=== PATIENT | female | born 1985 | race Caucasian/White ===

== ENCOUNTER → 2017-05-11 | Outpatient (CLI) | payer OTHER ==
[~2017-05-11] MED LIST: ACET-1256 PO; AZEL30SP NAE; ETONMIS VAGRING; FLUT0.15 NAE; HYDR-3124 PO; HYDR-3983 PO; PRLSR20 PO; PROP40TA5 PO; SUMA50TA15 PO; TRAZ50TA35 PO
== END | disposition home or self-care (01) ==
LOC: C.PAPS 13:47
PROVIDERS: ATTEND Obstetrics & Gynecology
DX: Z12.4 Encounter for screening for malignant neoplasm of cervix (principal)

== ENCOUNTER 2017-05-19 15:45 | Emergency (ER) | payer OTHER ==
[~2017-05-19] VITALS: Ht 170.2 cm; Wt 74.1 kg
[~2017-05-19 15:45] MED LIST changes: -ETONMIS VAGRING; -HYDR-3124 PO; -PRLSR20 PO; -PROP40TA5 PO; -SUMA50TA15 PO; -TRAZ50TA35 PO
[2017-05-19 15:54] VITALS: TEMP 36.8; Ht 170.2 cm; Wt 74.1 kg
--- NOTE | 2017-05-19 17:04 | DIAGNOSTIC IMAGING REPORT ---
CHEST ONE VIEW PORTABLE CLINICAL HISTORY: Evaluate Fever/Sepsis sepsis COMPARISON STUDY: 10/02/2016 FINDINGS: The bones soft tissues and hemidiaphragms are normal. The cardiomediastinal silhouette is normal. The lungs are clear. The pulmonary vasculature is normal. IMPRESSION: Negative chest. The above report was generated using voice recognition software. It may contain grammatical, syntax or spelling errors. Electronically signed by: Amadeo Schilling M.D. 05/19/2017 5:02 PM Dictated Date/Time: 05/19/2017 5:02 PM
[2017-05-19 17:05] LABS: BASO % 0.4 %; BASO ABS # 0.03 K/uL (0-0.2); COMPLETE YES; EOS % 2.3 %; HEMATOCRIT 38.1 % (37-47); IG% 0.3 %; LYMPH % 38.4 %; LYMPH ABS # 2.95 K/uL (1.2-3.4); MEAN CELL VOLUME 88.8 fL (80-100); MEAN CORPUSCULAR HEMOGLOBIN 31.2 pg (25-34); MEAN CORPUSCULAR HGB CONC 35.2 g/dl (32-36); MEAN PLATELET VOLUME 10.9 fL (7.4-10.4); NEUT % 49.6 %; PLATELET COUNT 222 K/uL (130-400); RED BLOOD COUNT 4.29 M/uL (4.2-5.4); WHITE BLOOD COUNT 7.69 K/uL (4.8-10.8)
[2017-05-19 17:18] LABS: POINT OF CARE TROPONIN I < 0.030 ng/ml (0-0.045)
[2017-05-19 17:21] LABS: PARTIAL THROMBOPLASTIN RATIO 1.1; PROTHROMBIN TIME (PATIENT) 10.2 SECONDS (9.0-12.0)
[2017-05-19] MEDS ORDERED: SUMA50TA15 PO (17:26)
[2017-05-19] MEDS ORDERED: ETONMIS VAGRING (17:26)
[2017-05-19] MEDS ORDERED: TRAZ50TA35 PO (17:26)
[2017-05-19] MEDS ORDERED: HYDR-3124 PO (17:26)
[2017-05-19] MEDS ORDERED: PROP40TA5 PO (17:26)
[2017-05-19] MEDS ORDERED: PRLSR20 PO (17:26)
[2017-05-19 17:34] LABS: ALT/SGPT 73 U/L (12-78); AST/SGOT 13 U/L (15-37); BLOOD UREA NITROGEN 12 mg/dl (7-18); BUN/CREATININE RATIO 12.9 (10-20); CARBON DIOXIDE 27 mmol/L (21-32); CHLORIDE 107 mmol/L (98-107); CREATININE 0.95 mg/dl (0.60-1.20); GLUCOSE 82 mg/dl (70-99); POTASSIUM 3.6 mmol/L (3.5-5.1); SODIUM 138 mmol/L (136-145)
[2017-05-19 17:39] LABS: ALKALINE PHOSPHATASE 74 U/L (45-117)
--- NOTE | 2017-05-19 18:37 | EMERGENCY ROOM VISIT NOTE ---
History Report prepared by Mark: Madhavi Scott Under the Supervision of: Dr. Weston Rico D.O. First contact with patient: 16:40 Chief Complaint: CARDIAC ASSESSMENT Stated Complaint: CHEST PAIN,LEG PAIN,HEADACHE,NAUSEA,CHILLS,SWEATS Nursing Triage Summary: Pt referred by Dr Ricketts. Started on Nuvaring last Wednesday. Began having bilateral leg pain and migraines, nausea. Takes Imitrex no relief. Pt now reports chest heaviness more on the right side, headaches and pain in legs. Hx of Gallbladder removal and Hep A History of Present Illness The patient is a 32 year old female who presents to the Emergency Room with complaints of persistent central chest pain that began today. She currently rates her discomfort as a 6/10 in severity and describes her pain as a dull pain. The patient states that last week she was placed on the NuvaRing last week for her heavy menstrual cycles. She states that she has a history of a tubal ligation. The patient states that one week ago she began developing bilateral leg pain. She states that the pain has persisted. The patient reports a history of migraines, noting that she is prescribed two different medications for her migraines. She states that her migraines became more frequent at the end of last week. The patient states that last night she took her Imitrex three times without relief of her migraine-headache. She states that she never had a migraine this bad. The patient states that when she woke this morning she noticed a dull chest pain that has persisted throughout the day. She states that her chest pain feels heavier with lying flat. The patient states that her migraine-headache has persisted throughout the day and has taken Imitrex twice today. She additionally reports nausea, stating that she has taken Zofran for her symptoms. The patient states that Dr. Josue, OB/ Trade Show Coordinator referred her to the emergency department for further work up. Source of History: patient Onset: today Position: chest (central) Symptom Intensity: 6/10 Quality: dull, other (heaviness) Timing: other (persistent) Modifying Factors (Worsening): other (heavier with lying flat) Associated Symptoms: + headache, + nausea Note: Associated Symptoms: bilateral leg pain Review of Systems See HPI for pertinent positives & negatives. A total of 10 systems reviewed and were otherwise negative. Past Medical & Surgical Medical Problems: (1) Acute gastroenteritis (2) Ankle contusion (3) Post term over 40 weeks Family History Diabetes mellitus Hypertension Social History Smoking Status: Current Every Day Smoker Alcohol Use: none Drug Use: none Marital Status: single, in relationship Occupation Status: unemployed Current/Historical Medications Scheduled Etonogestrel/Ethinyl Estradiol (Nuvaring), 1 EA VAGRING MONTHLY Omeprazole (Prilosec), 20 MG PO DAILY Propranolol Hcl (Propranolol Hcl), 40 MG PO BID Trazodone Hcl (Trazodone), 50 MG PO HS Scheduled PRN Hydroxyzine Hcl (Atarax), 25-50 MG PO Q6H PRN for Anxiety Sumatriptan Succinate (Imitrex), 50 MG PO UD PRN for Migraine Allergies Coded Allergies: No Known Allergies (Verified , 10/02/16) Physical Exam Vital Signs Date Time Temp Pulse Resp B/P (MAP) Pulse Ox O2 Delivery O2 Flow Rate FiO2 05/19/17 18:40 63 16 116/73 100 Room Air 05/19/17 18:00 62 18 117/74 100 Room Air 05/19/17 17:21 52 05/19/17 15:58 100 Room Air 05/19/17 15:54 36.8 65 18 133/85 99 Room Air Physical Exam CONSTITUTIONAL/VITAL SIGNS: Reviewed / noted above. GENERAL: Non-toxic in appearance. INTEGUMENTARY: Warm, dry, and [place]. HEAD: Normocephalic. EYES: without scleral icterus or trauma. ENT/OROPHARYNX: clear and moist. LYMPHADENOPATHY/NECK: Is supple without lymphadenopathy or meningismus. RESPIRATORY: Lungs clear and equal. CARDIOVASCULAR: Regular rate and rhythm. GI/ABDOMEN: Soft and nontender. No organomegaly or pulsatile mass. No rebound or guarding. Normal bowel sounds. EXTREMITIES: Warm and well perfused. BACK: No CVA tenderness. NEUROLOGICAL: Intact without focal deficits. PSYCHIATRIC: normal affect. MUSCULOSKELETAL: Normally developed with good muscle tone. Medical Decision & Procedures ER Provider Diagnostic Interpretation: X ray results and stated below per my interpretation and radiology interpretation. CHEST ONE VIEW PORTABLE CLINICAL HISTORY: Evaluate Fever/Sepsis sepsis COMPARISON STUDY: 10/02/2016 FINDINGS: The bones soft tissues and hemidiaphragms are normal. The cardiomediastinal silhouette is normal. The lungs are clear. The pulmonary vasculature is normal. IMPRESSION: Negative chest. The above report was generated using voice recognition software. It may contain grammatical, syntax or spelling errors. Electronically signed by: Amadeo Schilling M.D. 05/19/2017 5:02 PM Dictated Date/Time: 05/19/2017 5:02 PM Laboratory Results 05/19/17 16:52 Red Blood Count 4.29, Mean Corpuscular Volume 88.8, Mean Corpuscular Hemoglobin 31.2, Mean Corpuscular Hemoglobin Concent 35.2, Mean Platelet Volume 10.9, Neutrophils (%) (Auto) 49.6, Lymphocytes (%) (Auto) 38.4, Monocytes (%) (Auto) 9.0, Eosinophils (%) (Auto) 2.3, Basophils (%) (Auto) 0.4, Neutrophils # (Auto) 3.82, Lymphocytes # (Auto) 2.95, Monocytes # (Auto) 0.69, Eosinophils # (Auto) 0.18, Basophils # (Auto) 0.03 05/19/17 16:52 Test 05/19/17 16:52 05/19/17 16:59 White Blood Count 7.69 K/uL (4.8-10.8) Red Blood Count 4.29 M/uL (4.2-5.4) Hemoglobin 13.4 g/dL (12.0-16.0) Hematocrit 38.1 % (37-47) Mean Corpuscular Volume 88.8 fL (80-100) Mean Corpuscular Hemoglobin 31.2 pg (25-34) Mean Corpuscular Hemoglobin Concent 35.2 g/dl (32-36) Platelet Count 222 K/uL (130-400) Mean Platelet Volume 10.9 fL (7.4-10.4) Neutrophils (%) (Auto) 49.6 % Lymphocytes (%) (Auto) 38.4 % Monocytes (%) (Auto) 9.0 % Eosinophils (%) (Auto) 2.3 % Basophils (%) (Auto) 0.4 % Neutrophils # (Auto) 3.82 K/uL (1.4-6.5) Lymphocytes # (Auto) 2.95 K/uL (1.2-3.4) Monocytes # (Auto) 0.69 K/uL (0.11-0.59) Eosinophils # (Auto) 0.18 K/uL (0-0.5) Basophils # (Auto) 0.03 K/uL (0-0.2) RDW Standard Deviation 41.6 fL (36.4-46.3) RDW Coefficient of Variation 13.0 % (11.5-14.5) Immature Granulocyte % (Auto) 0.3 % Immature Granulocyte # (Auto) 0.02 K/uL (0.00-0.02) Prothrombin Time 10.2 SECONDS (9.0-12.0) Prothromb Time International Ratio 1.0 (0.9-1.1) Activated Partial Thromboplast Time 27.8 SECONDS (21.0-31.0) Partial Thromboplastin Ratio 1.1 Anion Gap 4.0 mmol/L (3-11) Est Creatinine Clear Calc Drug Dose 91.1 ml/min Estimated GFR () 93.2 Estimated GFR (Non- 80.4 BUN/Creatinine Ratio 12.9 (10-20) Calcium Level 9.0 mg/dl (8.5-10.1) Total Bilirubin 0.3 mg/dl (0.2-1) Direct Bilirubin 0.1 mg/dl (0-0.2) Aspartate Amino Transf (AST/SGOT) 13 U/L (15-37) Alanine Aminotransferase (ALT/SGPT) 73 U/L (12-78) Alkaline Phosphatase 74 U/L (45-117) Total Creatine Kinase 78 U/L (26-192) Creatine Kinase MB < 0.5 ng/ml (0.5-3.6) Creatine Kinase MB Ratio (0-3.0) Total Protein 8.0 gm/dl (6.4-8.2) Albumin 4.0 gm/dl (3.4-5.0) Bedside D-Dimer 357 ng/mlFEU (0-450) Bedside Troponin I < 0.030 ng/ml (0-0.045) Laboratory results as stated above per my review. ECG Indication: chest pain Rate (beats per minute): 54 Rhythm: sinus bradycardia Findings: no acute ischemic change, no ectopy ED Course 164: Previous medical records were reviewed. The patient was evaluated in room C5. A complete history and physical examination was performed. 1840: I reevaluated the patient and she is doing well. I discussed the exam findings with her and I discussed the treatment plan. She verbalized complete understanding and agreement. She is ready to go home. Medical Decision Differentials considered include acute myocardial infarction, acute coronary syndrome, myocarditis, pericarditis, pericardial effusions /tamponade, esophageal perforation, thoracic aortic dissection, pulmonary embolism, pneumonia, pneumothorax, pancreatitis, shingles, acute cholecystitis, and perforated abdominal viscus. This is a 32-year-old female who presents to the ED with a chief complaint of leg pain last week as well as increasing migraines and some chest pain today. She describes it as a retrosternal sharp pain that is now dull. It is been all day. She also had some nausea. She states that she had a NuvaRing placed last Wednesday. She thought the symptoms were related to this. She was to come in for evaluation for her symptoms. Her vital signs are normal. Her physical exam was normal. An EKG shows a normal sinus rhythm. CBC is normal, d-dimer and troponin are negative, complete metabolic panel was normal and a chest x- ray did not show acute disease. EKG shows a sinus bradycardia rate of 54. The patient was told the results of the test. She is felt to be stable for discharge and outpatient follow-up. The patient did report that she did remove the Nuvaring. Medication Reconcilliation Current Medication List: was personally reviewed by me Blood Pressure Screening Patient's blood pressure: Normal blood pressure Blood pressure disposition: Did not require urgent referral Impression Primary Impression: Retrosternal chest pain Additional Impressions: Headache Leg pain Scribe Attestation The scribe's documentation has been prepared under my direction and personally reviewed by me in its entirety. I confirm that the note above accurately reflects all work, treatment, procedures, and medical decision making performed by me. Departure Information Dispostion Home / Self-Care Referrals Branden Borrero III, M.D. (PCP) Forms IMPORTANT VISIT INFORMATION Patient Instructions My [facility] Additional Instructions Testing today did not reveal a serious cause for your symptoms. The symptoms could be related to the new NuvaRing or something else. Follow-up with your doctor for recheck. Return to the emergency department for worsening or new symptoms or any concerns. You have been examined and treated today on an emergency basis only. This is not a substitute for, or an effort to provide, complete comprehensive medical care. It is impossible to recognize and treat all injuries or illnesses in a single emergency department visit. It is therefore important that you follow up closely with your doctor. Call as soon as possible for an appointment. Problem Qualifiers
[2017-05-19 18:40] VITALS: BP 116/73; PULSE 63; O2SAT 100
== END 2017-05-19 19:03 | disposition home or self-care (01) ==
LOC: C.EDB 15:47 → C.EDC 19:03
DX: R07.2 Precordial pain (principal); R51 Headache; M79.604 Pain in right leg; M79.605 Pain in left leg; F17.200 Nicotine dependence, unspecified, uncomplicated; Z87.828 Personal history of other (healed) physical injury and trauma; Z87.19 Personal history of other diseases of the digestive system; Z79.899 Other long term (current) drug therapy

== ENCOUNTER 2017-09-29 23:31 | Emergency (ER) | payer OTHER ==
[~2017-09-29] VITALS: Ht 170.2 cm; Wt 74.7 kg
[~2017-09-29 23:31] MED LIST changes: -ACET-1256 PO; -AZEL30SP NAE; -FLUT0.15 NAE; +HYDR-3124 PO; -HYDR-3983 PO; +PRLSR20 PO; +PROP40TA5 PO; +SUMA50TA15 PO; +TRAZ50TA35 PO
[2017-09-29 23:42] VITALS: TEMP 36.9; Ht 170.2 cm; Wt 74.7 kg
[2017-09-29] MEDS ORDERED: ONDANSETRON INJ 2 MG/ML 2 ML VIAL IV STA (23:58)
[2017-09-29] MEDS ORDERED: SODIUM CHLORIDE 0.9% 1000ML 1,000 ML IV STA (23:58)
[2017-09-29] MEDS ORDERED: KETOROLAC TROMETHAMINE 30 MG/ML VIAL IV STA (23:58)
[2017-09-30 00:51] LABS: BASO % 0.1 %; BASO ABS # 0.01 K/uL (0-0.2); EOS % 0.4 %; EOS ABS # 0.03 K/uL (0-0.5); HEMATOCRIT 39.7 % (37-47); HEMOGLOBIN 13.6 g/dL (12.0-16.0); IG# 0.01 K/uL (0.00-0.02); LYMPH % 11.1 %; MEAN CELL VOLUME 90.6 fL (80-100); MEAN CORPUSCULAR HEMOGLOBIN 31.1 pg (25-34); MEAN CORPUSCULAR HGB CONC 34.3 g/dl (32-36); MEAN PLATELET VOLUME 10.4 fL (7.4-10.4); MONO % 8.1 %; MONO ABS # 0.66 K/uL (0.11-0.59); NEUT % 80.2 %; NEUT ABS # 6.53 K/uL (1.4-6.5); PLATELET COUNT 190 K/uL (130-400); RED CELL DISTRIBUTION WIDTH SD 43.5 fL (36.4-46.3); WHITE BLOOD COUNT 8.14 K/uL (4.8-10.8)
[2017-09-30 01:22] LABS: ALBUMIN 3.8 gm/dl (3.4-5.0); CALCIUM 8.5 mg/dl (8.5-10.1); CREATININE 0.84 mg/dl (0.60-1.20); POTASSIUM 3.7 mmol/L (3.5-5.1)
[2017-09-30 01:24] LABS: TOTAL PROTEIN 7.8 gm/dl (6.4-8.2)
[2017-09-30] MEDS ORDERED: OPTIRAY 320 IV PRN (01:30)
[2017-09-30] MEDS ORDERED: ONDANSETRON INJ 2 MG/ML 2 ML VIAL IV STA (03:26)
--- NOTE | 2017-09-30 03:57 | EMERGENCY ROOM VISIT NOTE ---
History First contact with patient: 23:50 Chief Complaint: GI ASSESSMENT Stated Complaint: FLU LIKE SYMPTOMS Nursing Triage Summary: c/o vomiting, diarrhea and abd cramps since yesterday. History of Present Illness The patient is a 32 year old female who presents to the Emergency Room with complaints of vomiting, diarrhea and abdominal cramping which began yesterday. The patient states that she has had cramping throughout her abdomen as well as multiple episodes of vomiting and diarrhea. She reports chills but has not taken her temperature. She took Imodium without relief of her diarrhea. She rates her discomfort a 5/10. She has not had much to eat or drink over the past few days. She had a cholecystectomy last year. She denies any other history of abdominal surgeries. She denies any cough, sore throat, earaches or body aches. She denies any blood in her stools. Review of Systems A complete 10 point review of systems was reviewed with the patient with pertinent positives and negatives as per history of present illness. All else were negative. Past Medical/Surgical History Medical Problems: (1) Acute gastroenteritis (2) Ankle contusion (3) Post term over 40 weeks Family History Diabetes mellitus Hypertension Social History Smoking Status: Current Every Day Smoker Alcohol Use: none Drug Use: none Marital Status: single, in relationship Occupation Status: unemployed Current/Historical Medications Scheduled Omeprazole (Prilosec), 20 MG PO DAILY Ondasetron Odt (Zofran Odt), 4 MG SL Q6H Propranolol Hcl (Propranolol Hcl), 40 MG PO BID Scheduled PRN Hydroxyzine Hcl (Atarax), 25-50 MG PO Q6H PRN for Anxiety Sumatriptan Succinate (Imitrex), 50 MG PO UD PRN for Migraine Trazodone Hcl (Trazodone), 50 MG PO HS PRN for Physical Exam Vital Signs Date Time Temp Pulse Resp B/P (MAP) Pulse Ox O2 Delivery O2 Flow Rate FiO2 09/30/17 05:27 71 17 103/61 99 09/30/17 04:10 71 17 106/60 100 Room Air 09/30/17 02:10 73 17 102/61 99 Room Air 09/30/17 00:48 76 20 96/52 98 Room Air 09/29/17 23:42 36.9 93 18 98/67 96 Room Air Physical Exam VITALS: Vitals are noted on the nurse's note and reviewed by myself. Vital signs stable. GENERAL: This is a 32-year-old female, in no acute distress, nondiaphoretic, well-developed well-nourished. EARS: External auditory canals clear, tympanic membranes pearly santos without erythema or effusion bilaterally. EYES: Pupils equal round and reactive to light and accommodation. MOUTH: Mucous membranes slightly dry. NECK: Supple without nuchal rigidity. HEART: Regular rate and rhythm without murmurs gallops or rubs. LUNGS: Clear to auscultation bilaterally without wheezes, rales or rhonchi. ABDOMEN: Positive bowel sounds x 4. Soft, mild diffuse tenderness to palpation. No focal tenderness. No guarding or rebound tenderness. NEURO: Patient was alert and oriented to person place and time. Medical Decision & Procedures ER Provider Diagnostic Interpretation: ABDOMINAL SERIES: Mildly dilated small bowel. No air-fluid levels to suggest obstruction. CT ABDOMEN & PELVIS WITH CONTRAST: Gastric wall thickening or under distention. Fluid in small bowel loops, can be seen with enteritis and the appropriate clinical setting. No evidence of bowel obstruction. Normal appendix visualized. Probable right corpus luteum. Trace pelvic free fluid. Redemonstration of surgical clips from cholecystectomy. Redemonstration of right lower pole 1 cm renal cyst. Radiologist: Roshni Esquivel MD Laboratory Results 09/30/17 00:35 Red Blood Count 4.38, Mean Corpuscular Volume 90.6, Mean Corpuscular Hemoglobin 31.1, Mean Corpuscular Hemoglobin Concent 34.3, Mean Platelet Volume 10.4, Neutrophils (%) (Auto) 80.2, Lymphocytes (%) (Auto) 11.1, Monocytes (%) (Auto) 8.1, Eosinophils (%) (Auto) 0.4, Basophils (%) (Auto) 0.1, Neutrophils # (Auto) 6.53, Lymphocytes # (Auto) 0.90, Monocytes # (Auto) 0.66, Eosinophils # (Auto) 0.03, Basophils # (Auto) 0.01 09/30/17 00:35 Test 09/30/17 00:35 09/30/17 00:50 White Blood Count 8.14 K/uL (4.8-10.8) Red Blood Count 4.38 M/uL (4.2-5.4) Hemoglobin 13.6 g/dL (12.0-16.0) Hematocrit 39.7 % (37-47) Mean Corpuscular Volume 90.6 fL (80-100) Mean Corpuscular Hemoglobin 31.1 pg (25-34) Mean Corpuscular Hemoglobin Concent 34.3 g/dl (32-36) Platelet Count 190 K/uL (130-400) Mean Platelet Volume 10.4 fL (7.4-10.4) Neutrophils (%) (Auto) 80.2 % Lymphocytes (%) (Auto) 11.1 % Monocytes (%) (Auto) 8.1 % Eosinophils (%) (Auto) 0.4 % Basophils (%) (Auto) 0.1 % Neutrophils # (Auto) 6.53 K/uL (1.4-6.5) Lymphocytes # (Auto) 0.90 K/uL (1.2-3.4) Monocytes # (Auto) 0.66 K/uL (0.11-0.59) Eosinophils # (Auto) 0.03 K/uL (0-0.5) Basophils # (Auto) 0.01 K/uL (0-0.2) RDW Standard Deviation 43.5 fL (36.4-46.3) RDW Coefficient of Variation 13.0 % (11.5-14.5) Immature Granulocyte % (Auto) 0.1 % Immature Granulocyte # (Auto) 0.01 K/uL (0.00-0.02) Anion Gap 6.0 mmol/L (3-11) Est Creatinine Clear Calc Drug Dose 103.3 ml/min Estimated GFR () 108.1 Estimated GFR (Non- 93.3 BUN/Creatinine Ratio 14.9 (10-20) Calcium Level 8.5 mg/dl (8.5-10.1) Total Bilirubin 0.8 mg/dl (0.2-1) Aspartate Amino Transf (AST/SGOT) 191 U/L (15-37) Alanine Aminotransferase (ALT/SGPT) 144 U/L (12-78) Alkaline Phosphatase 93 U/L (45-117) Total Protein 7.8 gm/dl (6.4-8.2) Albumin 3.8 gm/dl (3.4-5.0) Globulin 4.0 gm/dl (2.5-4.0) Albumin/Globulin Ratio 1.0 (0.9-2) Lipase 154 U/L (73-393) Urine Color DK YELLOW Urine Appearance CLOUDY (CLEAR) Urine pH 5.0 (4.5-7.5) Urine Specific Kaycee 1.022 (1.000-1.030) Urine Protein NEG (NEG) Urine Glucose (UA) NEG (NEG) Urine Ketones TRACE (NEG) Urine Occult Blood NEG (NEG) Urine Nitrite NEG (NEG) Urine Bilirubin NEG (NEG) Urine Urobilinogen NEG (NEG) Urine Leukocyte Esterase NEG (NEG) Urine WBC (Auto) 1-5 /hpf (0-5) Urine RBC (Auto) 10-30 /hpf (0-4) Urine Hyaline Casts (Auto) 1-5 /lpf (0-5) Urine Epithelial Cells (Auto) >30 /lpf (0-5) Urine Bacteria (Auto) NEG (NEG) Urine Test NEG (NEG) Medications Administered Medications (Trade) Dose Ordered Sig/Timothy Route Start Time Stop Time Status Last Admin Dose Admin Sodium Chloride 1,000 ml @ 999 mls/hr Q1H1M STAT IV 09/29/17 23:58 09/30/17 00:58 DC 09/30/17 00:44 999 MLS/HR Ketorolac Tromethamine (Toradol Inj) 30 mg NOW STAT IV 09/29/17 23:58 09/30/17 00:00 DC 09/30/17 00:45 30 MG Ondansetron HCl (Zofran Inj) 4 mg NOW STAT IV 09/29/17 23:58 09/30/17 00:00 DC 09/30/17 00:44 4 MG Ondansetron HCl (Zofran Inj) 4 mg NOW STAT IV 09/30/17 03:26 09/30/17 03:27 DC 09/30/17 03:26 4 MG Ondansetron HCl (ZOFRAN ODT 4MG Home Pack) 1 homepack UD ONCE PO 09/30/17 05:15 09/30/17 05:16 DC 09/30/17 05:29 1 HOMEPACK Medical Decision Differential diagnosis includes gastroenteritis, appendicitis, colitis, C. difficile, among others. The patient is a 32-year-old female who presents today complaining of abdominal cramping, vomiting and diarrhea. Labs revealed no leukocytosis or anemia. No concerning electrolyte abnormalities. Lipase was not elevated. LFTs are elevated with AST of 191 and ALT 144. This appears to be new for the patient. Bilirubin is normal. CT of the abdomen and pelvis was performed and shows findings consistent with enteritis without any other acute findings. Patient was treated with IV Zofran and fluids with improvement of symptoms. She was able to tolerate oral fluids. She was given a home pack and prescription of Zofran and instructed to push fluids at home. She will follow-up with her primary care provider and should have her LFTs rechecked. She understands she should return for any worsening or new/concerning symptoms. Based on the patient's presentation and work up, I feel the patient is stable for outpatient treatment. The patient was educated to return to the emergency department for any worsening of their current condition or new/concerning symptoms. She will follow up with her PCP. Medication Reconcilliation Current Medication List: was personally reviewed by me Blood Pressure Screening Patient's blood pressure: Normal blood pressure Impression Primary Impression: Nausea, vomiting and diarrhea Departure Information Dispostion Home / Self-Care Condition GOOD Prescriptions Ondasetron Odt (ZOFRAN ODT) 4 Mg Tab 4 MG SL Q6H for Nausea, #10 TAB Prov: Sheela Bustillo ., CHARIS 09/30/17 Referrals Branden Borrero III, M.D. (PCP) Patient Instructions My [facility] Additional Instructions You have been prescribed Zofran to be used for any nausea or vomiting. Take as prescribed. Make sure to rest and drink plenty of fluids, especially Gatorade or other electrolyte-containing fluids like Pedialyte. Follow-up with your primary care provider in 2 days for a recheck. Return to the emergency department with any worsening vomiting, lightheadedness , dizziness, passing out or other new/concerning symptoms.
[2017-09-30] MEDS ORDERED: ONDA4TAB10 SL (05:11)
[2017-09-30] MEDS ORDERED: ONDANSETRON HOME PACK 4MG OD TAB PO ONE (05:15)
[2017-09-30 05:27] VITALS: BP 103/61; PULSE 71; O2SAT 99
--- NOTE | 2017-09-30 06:39 | DIAGNOSTIC IMAGING REPORT ---
ABDOMEN 2VIEW W/PA CHEST RTN CLINICAL HISTORY: abdominal cramping, vomiting pain. Nausea. COMPARISON STUDY: 2016 FINDINGS: The soft tissues, psoas shadows, renal outlines and intestinal gas pattern appear normal. There is no evidence for bowel obstruction. There is no evidence for free intraperitoneal air. No abnormal abdominal calcifications are seen. A frontal view of the chest was performed and is unremarkable. Minimal ileus with several air-filled loops of small bowel IMPRESSION: Normal chest. Minimal ileus. The above report was generated using voice recognition software. It may contain grammatical, syntax or spelling errors. Electronically signed by: Amadeo Schilling M.D. 09/30/2017 6:37 AM Dictated Date/Time: 09/30/2017 6:37 AM
--- NOTE | 2017-09-30 07:21 | DIAGNOSTIC IMAGING REPORT ---
ABDOMEN AND PELVIS CT WITH IV CONTRAST CT DOSE: 382.96 mGy.cm HISTORY: Generalized abdominal pain, vomiting TECHNIQUE: Multiaxial CT images of the abdomen and pelvis were performed following the use of intravenous contrast. A dose lowering technique was utilized adhering to the principles of ALARA. COMPARISON STUDY: Abdomen and pelvis CT 10/03/2016. FINDINGS: The lung bases are clear. Cholecystectomy. There is again noted a 1 cm right renal cyst. Normal left kidney. No hydronephrosis. The spleen, pancreas, and adrenal glands are unremarkable. Questionable gastric wall thickening is likely due to underdistention. Otherwise, no bowel wall thickening or obstruction. Normal appendix. No retroperitoneal lymphadenopathy. Small corpus luteum within the right ovary. Normal uterus and left ovary. Trace pelvic free fluid. The bladder is underdistended and not well visualized. IMPRESSION: 1. No bowel wall thickening or obstruction. 2. Normal appendix. 3. Cholecystectomy. 4. Right renal cyst. Electronically signed by: Isac Joe M.D. 09/30/2017 7:19 AM Dictated Date/Time: 09/30/2017 7:16 AM
[2017-11-05] MEDS ORDERED: OXYC-90 PO (23:43)
[2017-11-09] MEDS ORDERED: OXYC-90 PO (17:10)
[2018-03-30] MEDS ORDERED: CEPH500C PO (20:49)
[2018-04-01] MEDS ORDERED: CEPH500C2 PO (05:59)
[2018-04-01] MEDS ORDERED: ONDA4TAB10 SL (06:04)
[2018-04-01] MEDS ORDERED: VENL150C2 PO (06:06)
== END 2017-09-30 05:28 | disposition home or self-care (01) ==
LOC: C.EDB 23:32
DX: R11.2 Nausea with vomiting, unspecified (principal); R19.7 Diarrhea, unspecified; Z87.19 Personal history of other diseases of the digestive system; Z87.828 Personal history of other (healed) physical injury and trauma; F17.200 Nicotine dependence, unspecified, uncomplicated; Z79.899 Other long term (current) drug therapy; Z83.3 Family history of diabetes mellitus; Z82.49 Family history of ischemic heart disease and other diseases of the circulatory system

== ENCOUNTER 2017-11-05 20:31 | Emergency (ER) | payer OTHER ==
[~2017-11-05] VITALS: Ht 170.2 cm; Wt 76.7 kg
[~2017-11-05 20:31] MED LIST changes: +ONDA4TAB10 SL
[2017-11-05 20:37] VITALS: TEMP 36.4; Ht 170.2 cm; Wt 76.7 kg
[2017-11-05] MEDS ORDERED: MoRPHine SULFATE 10 MG/ML CARP/VIAL IV STA ×2 (21:00→23:02)
[2017-11-05] MEDS ORDERED: KETOROLAC TROMETHAMINE 30 MG/ML VIAL IV STA (21:00)
[2017-11-05] MEDS ORDERED: ONDANSETRON INJ 2 MG/ML 2 ML VIAL IV STA ×2 (21:00→23:02)
[2017-11-05] MEDS ORDERED: TAMS0.4C38 PO (21:45)
[2017-11-05] MEDS ORDERED: CIPR-255 PO (21:45)
[2017-11-05 21:51] LABS: BASO % 0.2 %; BASO ABS # 0.02 K/uL (0-0.2); EOS % 2.9 %; EOS ABS # 0.24 K/uL (0-0.5); HEMATOCRIT 37.6 % (37-47); HEMOGLOBIN 12.8 g/dL (12.0-16.0); IG# 0.02 K/uL (0.00-0.02); LYMPH % 45.4 %; LYMPH ABS # 3.71 K/uL (1.2-3.4); MEAN CORPUSCULAR HEMOGLOBIN 30.6 pg (25-34); MEAN PLATELET VOLUME 10.7 fL (7.4-10.4); MONO % 8.4 %; MONO ABS # 0.69 K/uL (0.11-0.59); NEUT % 42.9 %; NEUT ABS # 3.49 K/uL (1.4-6.5); PLATELET COUNT 213 K/uL (130-400); RED CELL DISTRIBUTION WIDTH CV 12.7 % (11.5-14.5); RED CELL DISTRIBUTION WIDTH SD 41.6 fL (36.4-46.3); WHITE BLOOD COUNT 8.17 K/uL (4.8-10.8)
[2017-11-05 22:14] LABS: CALCIUM 8.7 mg/dl (8.5-10.1); CREATININE 0.72 mg/dl (0.60-1.20); POTASSIUM 3.6 mmol/L (3.5-5.1)
[2017-11-05 22:17] LABS: TOTAL PROTEIN 7.7 gm/dl (6.4-8.2)
--- NOTE | 2017-11-05 22:57 | DIAGNOSTIC IMAGING REPORT ---
PELVIC COMPLETE NON OB CLINICAL HISTORY: 32 years-old Female presenting with RIGHT PELVIC PAIN, REPORTED OVARIAN CYST, history of tubal ligation, right greater than left pelvic pain. TECHNIQUE: Real-time grayscale and color and spectral Doppler ultrasound imaging of the pelvis was performed first using a transabdominal probe and subsequently transvaginal for better characterization. COMPARISON: CT from 09/30/2017. FINDINGS: Uterus: Normal. Retroverted. The uterus measures 7.1 x 4.7 x 6.4 cm. Endometrial stripe measures 16 mm in thickness, which could be normal for age and phase of menstrual cycle. Endometrium normal-appearing. Cervix normal. Right adnexa: Right ovary contains an avascular hypoechoic lesion with lacelike internal echoes. This lesion measures 3.5 x 2.5 x 3.8 cm and accounts for expansion of the right ovary. Right ovary measures 5.4 x 4.8 x 4.8 cm. Normal color Doppler flow and arterial and venous waveforms within the ovarian parenchyma. Left adnexa: Left ovary normal. Left ovary measures 3.6 x 1.6 x 2.0 cm. Normal color Doppler flow and arterial and venous waveforms within the ovarian parenchyma. Other: Trace free fluid, likely physiologic. IMPRESSION: 1. Right hemorrhagic cyst. No ovarian torsion. Electronically signed by: Yusuf Keen M.D. 11/05/2017 10:56 PM Dictated Date/Time: 11/05/2017 10:52 PM
[2017-11-05] MEDS ORDERED: OXYC1TAB3 PO (23:43)
[2017-11-05] MEDS ORDERED: OXYCODONE IR HOME PACK PO ONE (23:45)
--- NOTE | 2017-11-05 23:51 | EMERGENCY ROOM VISIT NOTE ---
History First contact with patient: 20:49 Chief Complaint: FLANK PAIN Stated Complaint: RIGHT BACK PAIN, PELVIC PAIN, OVARY CYST History of Present Illness Patient is a 32-year-old white female who presents the emergency department for evaluation of right flank pain 2 weeks. She states that she developed pain in her right low back about 2 weeks ago. She tried to ride it out and let it go for about a week. One week ago, she developed symptoms concerning for a urinary tract infection. On Wednesday, 10/31 she was seen at [facility] where she was placed on Cipro for a suspected UTI. She reports that she had blood in her urine at that time. She was contacted 2 days later however because the urine culture was negative. She did continue to take the Cipro. She was seen by her primary care provider yesterday. Again, she had blood in her urine and given the flank pain, she was started on Flomax and Oneill , and had a noncontrast CT scan performed. She sent a message to her provider today and was given the results of the CT scan via email. She reportedly had a right ovarian cyst that was about 4 cm, but did not have a kidney stone. The patient states that despite the Flomax, Cipro and Oneill, the pain is worsening. It is now low in the right abdomen, groin and radiates towards the top of her thigh. She continues to have dysuria, frequency, urgency and hesitancy. She is nauseous and dizzy on occasion with pain. She has not been vomiting. She had Zofran at home from a prior illness which she took. She presently rates her pain a an 8/10. She is status post tubal ligation and cholecystectomy. She was seen by her square cutter for irregular menstrual bleeding recently, otherwise denies any significant gynecologic history. Bowel movements have been normal. She denies fevers. Review of Systems Review of systems as per HPI. All other systems reviewed were negative. 10 systems reviewed. Past Medical/Surgical History Medical Problems: (1) Abdominal pain, right upper quadrant (2) Acute gastroenteritis (3) Acute gastroenteritis (4) Ankle contusion (5) Anxiety (6) Biliary colic (7) Dehydration (8) Gallstones (9) GERD (gastroesophageal reflux disease) (10) Headache (11) Leakage of amniotic fluid (12) Leg pain (13) Migraine (14) Nausea, vomiting and diarrhea (15) Plant allergic contact dermatitis (16) Post term over 40 weeks (17) Retrosternal chest pain (18) Right sided abdominal pain (19) Right-sided chest pain (20) RUQ abdominal pain Surgical Problems: (1) History of tubal ligation (2) Status post cholecystectomy Electronic medical records are reviewed and summarized as above/below. See Problem List. Family History Diabetes mellitus Hypertension Social History Smoking Status: Current Every Day Smoker Alcohol Use: none Drug Use: none Marital Status: Housing Status: lives with family Occupation Status: employed Current/Historical Medications Scheduled Ciprofloxacin Hcl (Cipro), 500 MG PO BID Omeprazole (Prilosec), 20 MG PO DAILY Ondasetron Odt (Zofran Odt), 4 MG SL Q6H Propranolol Hcl (Propranolol Hcl), 40 MG PO BID Tamsulosin Hcl (Flomax), 0.4 MG PO DAILY Scheduled PRN Hydroxyzine Hcl (Atarax), 25-50 MG PO Q6H PRN for Anxiety Oxycodone Ir (Roxicodone Ir), 1-2 TAB PO Q4H PRN for Severe Pain Sumatriptan Succinate (Imitrex), 50 MG PO UD PRN for Migraine Trazodone Hcl (Trazodone), 50 MG PO HS PRN for Physical Exam Vital Signs Date Time Temp Pulse Resp B/P (MAP) Pulse Ox O2 Delivery O2 Flow Rate FiO2 11/05/17 22:59 65 18 124/73 100 Room Air 11/05/17 21:38 71 16 112/67 99 Room Air 11/05/17 20:37 36.4 81 20 117/82 100 Room Air Physical Exam CONSTITUTIONAL: Patient is an uncomfortable appearing 32-year-old white female who is awake and alert and in moderate distress due to her stated complaint. EYES: Pupils equal, round, reactive to light and accommodation. EOMs intact without nystagmus. Sclera are anicteric. ENT: Tympanic membranes intact, with normal landmarks. External canals are clear. Oral and nasopharynx are clear. Mucous membranes are moist, no lesions , tongue and gums appear normal. CARDIOVASCULAR: Regular rate and rhythm, with normal S1 and S2, no murmur or gallop or rub is heard. No carotid bruits auscultated. No JVD. Peripheral pulses easily palpable. RESPIRATORY: Breath sounds equal and clear to auscultation without wheezes, rales, or rhonchi heard. Full and equal chest expansion without accessory muscle use or retractions. ABDOMEN: Bowel sounds are present. Well-healed surgical scars are noted. Abdomen is soft, nondistended, tender to percussion and palpation very low in the right lower quadrant, without guarding, rebound or rigidity. INTEGUMENTARY: No lesions or rash, normal skin turgor. LYMPH: No lymphadenopathy. Medical Decision & Procedures ER Provider Diagnostic Interpretation: PELVIC COMPLETE NON OB CLINICAL HISTORY: 32 years-old Female presenting with RIGHT PELVIC PAIN, REPORTED OVARIAN CYST, history of tubal ligation, right greater than left pelvic pain. TECHNIQUE: Real-time grayscale and color and spectral Doppler ultrasound imaging of the pelvis was performed first using a transabdominal probe and subsequently transvaginal for better characterization. COMPARISON: CT from 09/30/2017. FINDINGS: Uterus: Normal. Retroverted. The uterus measures 7.1 x 4.7 x 6.4 cm. Endometrial stripe measures 16 mm in thickness, which could be normal for age and phase of menstrual cycle. Endometrium normal-appearing. Cervix normal. Right adnexa: Right ovary contains an avascular hypoechoic lesion with lacelike internal echoes. This lesion measures 3.5 x 2.5 x 3.8 cm and accounts for expansion of the right ovary. Right ovary measures 5.4 x 4.8 x 4.8 cm. Normal color Doppler flow and arterial and venous waveforms within the ovarian parenchyma. Left adnexa: Left ovary normal. Left ovary measures 3.6 x 1.6 x 2.0 cm. Normal color Doppler flow and arterial and venous waveforms within the ovarian parenchyma. Other: Trace free fluid, likely physiologic. IMPRESSION: 1. Right hemorrhagic cyst. No ovarian torsion. Laboratory Results 11/05/17 21:19 Red Blood Count 4.18, Mean Corpuscular Volume 90.0, Mean Corpuscular Hemoglobin 30.6, Mean Corpuscular Hemoglobin Concent 34.0, Mean Platelet Volume 10.7, Neutrophils (%) (Auto) 42.9, Lymphocytes (%) (Auto) 45.4, Monocytes (%) (Auto) 8.4, Eosinophils (%) (Auto) 2.9, Basophils (%) (Auto) 0.2, Neutrophils # (Auto) 3.49, Lymphocytes # (Auto) 3.71, Monocytes # (Auto) 0.69, Eosinophils # (Auto) 0.24, Basophils # (Auto) 0.02 11/05/17 21:19 Test 11/05/17 21:19 White Blood Count 8.17 K/uL (4.8-10.8) Red Blood Count 4.18 M/uL (4.2-5.4) Hemoglobin 12.8 g/dL (12.0-16.0) Hematocrit 37.6 % (37-47) Mean Corpuscular Volume 90.0 fL (80-100) Mean Corpuscular Hemoglobin 30.6 pg (25-34) Mean Corpuscular Hemoglobin Concent 34.0 g/dl (32-36) Platelet Count 213 K/uL (130-400) Mean Platelet Volume 10.7 fL (7.4-10.4) Neutrophils (%) (Auto) 42.9 % Lymphocytes (%) (Auto) 45.4 % Monocytes (%) (Auto) 8.4 % Eosinophils (%) (Auto) 2.9 % Basophils (%) (Auto) 0.2 % Neutrophils # (Auto) 3.49 K/uL (1.4-6.5) Lymphocytes # (Auto) 3.71 K/uL (1.2-3.4) Monocytes # (Auto) 0.69 K/uL (0.11-0.59) Eosinophils # (Auto) 0.24 K/uL (0-0.5) Basophils # (Auto) 0.02 K/uL (0-0.2) RDW Standard Deviation 41.6 fL (36.4-46.3) RDW Coefficient of Variation 12.7 % (11.5-14.5) Immature Granulocyte % (Auto) 0.2 % Immature Granulocyte # (Auto) 0.02 K/uL (0.00-0.02) Urine Color YELLOW Urine Appearance CLEAR (CLEAR) Urine pH 5.5 (4.5-7.5) Urine Specific [place] 1.011 (1.000-1.030) Urine Protein NEG (NEG) Urine Glucose (UA) NEG (NEG) Urine Ketones NEG (NEG) Urine Occult Blood NEG (NEG) Urine Nitrite NEG (NEG) Urine Bilirubin NEG (NEG) Urine Urobilinogen NEG (NEG) Urine Leukocyte Esterase TRACE (NEG) Urine WBC (Auto) /hpf (0-5) Urine RBC (Auto) /hpf (0-4) Urine Hyaline Casts (Auto) /lpf (0-5) Urine Epithelial Cells (Auto) /lpf (0-5) Urine Bacteria (Auto) (NEG) Urine RBC 0-4 /hpf (0-4) Urine WBC 1-5 /hpf (0-5) Urine Epithelial Cells >30 /lpf (0-5) Urine Bacteria 1+ (NEG) Urine Test NEG (NEG) Anion Gap 7.0 mmol/L (3-11) Est Creatinine Clear Calc Drug Dose 122.0 ml/min Estimated GFR () 130.2 Estimated GFR (Non- 112.4 BUN/Creatinine Ratio 19.8 (10-20) Calcium Level 8.7 mg/dl (8.5-10.1) Total Bilirubin 0.2 mg/dl (0.2-1) Aspartate Amino Transf (AST/SGOT) 11 U/L (15-37) Alanine Aminotransferase (ALT/SGPT) 22 U/L (12-78) Alkaline Phosphatase 61 U/L (45-117) Total Protein 7.7 gm/dl (6.4-8.2) Albumin 4.0 gm/dl (3.4-5.0) Globulin 3.7 gm/dl (2.5-4.0) Albumin/Globulin Ratio 1.1 (0.9-2) Medications Administered Medications (Trade) Dose Ordered Sig/Timothy Route Start Time Stop Time Status Last Admin Dose Admin Ondansetron HCl (Zofran Inj) 4 mg NOW STAT IV 11/05/17 21:00 11/05/17 21:10 DC 11/05/17 21:33 4 MG Morphine Sulfate (MoRPHine SULFATE INJ) 6 mg NOW STAT IV 11/05/17 21:00 11/05/17 21:10 DC 11/05/17 21:32 6 MG Ketorolac Tromethamine (Toradol Inj) 30 mg NOW STAT IV 11/05/17 21:00 11/05/17 21:10 DC 11/05/17 21:32 30 MG Ondansetron HCl (Zofran Inj) 4 mg NOW STAT IV 11/05/17 23:02 11/05/17 23:04 DC 11/05/17 23:14 4 MG Morphine Sulfate (MoRPHine SULFATE INJ) 6 mg NOW STAT IV 11/05/17 23:02 11/05/17 23:04 DC 11/05/17 23:16 6 MG ED Course The patient was seen and evaluated as above. Her old records were reviewed, her recent [facility] records from this week were obtained, including a urine culture from 11/02 that showed mixed normal claribel. CT scan from yesterday showed no evidence for urinary tract stone, normal appendix and a 4.4 cm right ovarian cyst. IV lock was initiated. Laboratory studies were collected including urinalysis, CBC with differential, CMP and urine test. She is medicated with morphine 6 mg, Zofran 4 mg and Toradol 30 mg IV. Given the findings from CT scan from yesterday, pelvic ultrasound was obtained to evaluate the ovarian cyst. Patient's laboratory studies were fairly unremarkable. White count is not elevated. H&H is 12.8 and 37.6 chemistries are without gross abnormality. Renal function and LFTs are normal. Urinalysis shows trace leuk esterase, 1+ bacteria and greater than 30 epithelial cells. Urine test is negative. Pelvic ultrasound noted a brief 0.5 x 2.5 x 3.8 cm hemorrhagic right ovarian cyst. There is no evidence for torsion. The patient reported increased pain and nausea after returning from ultrasound and was medicated with an additional morphine 6 mg and Zofran 4 mg IV. All laboratory and diagnostic imaging studies were discussed with her. The pain appears consistent with the hemorrhagic right ovarian cyst. She had a negative CT for stone and appendicitis just yesterday. Given this, it was not felt that repeat CT scan was necessary. She continues to have some urinary symptoms, she has been on Cipro for 5 days. Urinalysis today is not indicative of infection, and her culture from earlier in the week was negative. She does not have any hematuria here today. Differential diagnoses entertained included UTI, pyelonephritis, renal colic, hepatitis, ovarian cyst, , ectopic , ovarian torsion, PID, tubo-ovarian abscess, among others. The patient will be switched from the Oneill to oxycodone for pain management. She was encouraged to apply warm compresses to the abdomen, and also to take an anti -inflammatory medicine. She was advised to follow-up with gynecology for further care and evaluation of her cyst. Is educated on the worrisome signs or symptoms for which she should return to the emergency department. She was discharged to home with her significant other driving in stable condition. Medical Decision See ED Course. RE Drug Monitoring Program Search Results: patient reviewed within database, no issues identified Medication Reconcilliation Current Medication List: was personally reviewed by me Blood Pressure Screening Patient's blood pressure: Normal blood pressure Blood pressure disposition: Did not require urgent referral Impression Primary Impression: Hemorrhagic cyst of right ovary Departure Information Prescriptions Oxycodone Ir (Roxicodone Ir) 5 Mg Tab 1-2 TAB PO Q4H Y for Severe Pain, #25 TAB For Initial Treatment Prov: Palak Haskins PA 11/05/17 Referrals Marko Funes, Dar.Bella (PCP) Vicky Josue M.D. Patient Instructions [facility] Additional Instructions DO NOT drive, drink alcohol, operate machinery, or perform dangerous activities today. You were given medications in the ER that can affect your ability to safely function or operate a vehicle. Oxycodone (OxyIR) 5mg: Take 1-2 pills every four hours as needed for breakthrough pain. Avoid alcohol, operating machinery or dangerous equipment, working on ladders or roofs, DRIVING, making important decisions, or situations where being under the influence may be dangerous. It is recommended to use an zrar-cxf-eygxzoa stool softener such as Colace, 100mg twice daily while taking this medication to avoid constipation. Ibuprofen(Motrin, Advil) may be used for fever or pain. Use 600mg every six hours as needed. Take with food. Avoid using more than 2400mg in a 24 hour period. Do not use 2400mg per day for more than three consecutive days without physician direction. Prolonged inappropriate use can lead to stomach upset or ulcers. This is available over the counter and typically comes in 200mg tablets. (AND/OR) Acetaminophen(Tylenol) may be used for fever or pain. Use 1000mg every eight hours as needed. Avoid using more than 3000mg in a 24 hour period. This is available over the counter. Read all the package inserts or medication information paperwork provided. If you have any questions or concerns call your primary provider, pharmacist or the ER for assistance. Heating pad to the abdomen as needed for discomfort. Rest and avoid any heavy lifting or strenuous activities. Rest and drink plenty of fluids as tolerated. Diet as tolerated. Continue current medications. Return to the ER immediately for worsening or persistent abdominal pain, vomiting, fevers, chest pains, difficulty breathing, black or bloody stools, worsening of your condition, or as needed. Follow up with gynecology for recheck. Call on Wednesday to schedule an appointment.
[2017-11-06 00:08] VITALS: BP 113/66; PULSE 82; O2SAT 100
== END 2017-11-06 00:08 | disposition home or self-care (01) ==
LOC: C.EDB 20:33
DX: N83.201 Unspecified ovarian cyst, right side (principal); R82.99 Other abnormal findings in urine; R30.0 Dysuria; R35.0 Frequency of micturition; R11.0 Nausea; R42 Dizziness and giddiness; K21.9 Gastro-esophageal reflux disease without esophagitis; F17.200 Nicotine dependence, unspecified, uncomplicated; Z90.49 Acquired absence of other specified parts of digestive tract; Z83.3 Family history of diabetes mellitus; Z82.49 Family history of ischemic heart disease and other diseases of the circulatory system

== ENCOUNTER 2017-11-09 13:27 | Emergency (ER) | payer OTHER ==
[~2017-11-09] VITALS: Ht 170.2 cm; Wt 77.1 kg
[~2017-11-09 13:27] MED LIST changes: +CIPR-255 PO; +OXYC1TAB3 PO; +TAMS0.4C38 PO
[2017-11-09 13:38] VITALS: O2SAT 100; Ht 170.2 cm; Wt 77.1 kg
[2017-11-09] MEDS ORDERED: LACTATED RINGER'S 1000ML 1,000 ML IV SCH (14:15)
[2017-11-09 14:56] LABS: BASO % 0.2 %; BASO ABS # 0.02 K/uL (0-0.2); EOS % 1.3 %; EOS ABS # 0.11 K/uL (0-0.5); HEMATOCRIT 36.6 % (37-47); HEMOGLOBIN 12.6 g/dL (12.0-16.0); IG# 0.02 K/uL (0.00-0.02); LYMPH % 27.1 %; LYMPH ABS # 2.26 K/uL (1.2-3.4); MEAN CELL VOLUME 90.4 fL (80-100); MEAN CORPUSCULAR HEMOGLOBIN 31.1 pg (25-34); MEAN CORPUSCULAR HGB CONC 34.4 g/dl (32-36); MEAN PLATELET VOLUME 10.3 fL (7.4-10.4); MONO % 6.7 %; MONO ABS # 0.56 K/uL (0.11-0.59); NEUT % 64.5 %; NEUT ABS # 5.36 K/uL (1.4-6.5); PLATELET COUNT 221 K/uL (130-400); RED CELL DISTRIBUTION WIDTH CV 12.9 % (11.5-14.5); RED CELL DISTRIBUTION WIDTH SD 42.4 fL (36.4-46.3); WHITE BLOOD COUNT 8.33 K/uL (4.8-10.8)
[2017-11-09] MEDS ORDERED: BUPIVACAINE 0.5 % 5 MG/1 ML MPF 30ML VIAL ONE (15:07)
--- NOTE | 2017-11-09 15:19 | Medical Student: [facility] ---
Med Student History & Physical Date of Service Nov 09, 2017. Chief Complaint abdominal pain History of Present Illness Source: patient Patient is a 32yo female with no significant PMH presenting with 5 day history abdominal pain. Patient states she had an ultrasound 11/05 which revealed a cyst on her right ovary. Pain is reported as 8 out of 10 localized to RT side upper and lower with radiation to flank. She was evaluated in office today by Dr. Josue who recommended she go to the ER for evaluation. She reports associated constipation and reduced appetite. OB History - Sons age 10 and 3 years Vaginal deliveries with no reported complication [employer] SALES [employer] History History of cervical dysplasia - ASHLEY 3 in 10/13 treated with LEEP Past Medical History Scoliosis Solitary thyroid nodule Migraine without aura Past Surgical History Bilateral tubal ligation Cholecystectomy Family History HTN, DM Social History Lives with partner and two children Alcohol use: 1-2 drinks/month Smokes 2-3 cigarettes per day Denies recreational drug use Smoking Status: Current Every Day Smoker (2-3 cigarettes/day) Smokeless Tobacco Use: No Alcohol Use: occasionally (1-2 drinks/month) Drug Use: none Marital Status: Housing status: lives with family Occupational Status: employed Allergies Coded Allergies: No Known Allergies (Verified , 11/09/17) Home Medications Ciprofloxacin Hcl (Cipro), 500 MG PO BID Hydroxyzine Hcl (Atarax), 25-50 MG PO Q6H PRN for Anxiety Omeprazole (Prilosec), 20 MG PO DAILY Ondasetron Odt (Zofran Odt), 4 MG SL Q6H Oxycodone Ir (Roxicodone Ir), 1-2 TAB PO Q4H PRN for Severe Pain Propranolol Hcl (Propranolol Hcl), 40 MG PO BID Sumatriptan Succinate (Imitrex), 50 MG PO UD PRN for Migraine Tamsulosin Hcl (Flomax), 0.4 MG PO DAILY Trazodone Hcl (Trazodone), 50 MG PO HS PRN for Review of Systems Abdomen: + pain, + constipation Physical Exam Vital Signs: Vital Signs Past 12 Hours Date Time Temp Pulse Resp B/P (MAP) Pulse Ox O2 Delivery O2 Flow Rate FiO2 11/09/17 13:38 36.8 96 18 141/93 100 Room Air General Appearance: WD/WN, + moderate distress Head: normocephalic, atraumatic Eyes: normal inspection, EOMI, sclerae normal ENT: hearing grossly normal Neck: no JVD, trachea midline Cardiovascular: no JVD Abdomen / GI: + pertinent finding (tenderness to palpation) Genitourinary - Female: + pertinent finding (Deffered: performed by Dr. Josue in office) Extremities: normal range of motion Neurologic/Psych: alert, normal mood/affect, oriented x 3 Skin: normal color Laboratory Results Test 11/09/17 14:30 White Blood Count 8.33 Red Blood Count 4.05 Hemoglobin 12.6 Hematocrit 36.6 Mean Corpuscular Volume 90.4 Mean Corpuscular Hemoglobin 31.1 Mean Corpuscular Hemoglobin Concent 34.4 Platelet Count 221 Mean Platelet Volume 10.3 Neutrophils (%) (Auto) 64.5 Lymphocytes (%) (Auto) 27.1 Monocytes (%) (Auto) 6.7 Eosinophils (%) (Auto) 1.3 Basophils (%) (Auto) 0.2 Neutrophils # (Auto) 5.36 Lymphocytes # (Auto) 2.26 Monocytes # (Auto) 0.56 Eosinophils # (Auto) 0.11 Basophils # (Auto) 0.02 RDW Standard Deviation 42.4 RDW Coefficient of Variation 12.9 Immature Granulocyte % (Auto) 0.2 Immature Granulocyte # (Auto) 0.02 Test 11/09/17 14:30 Diagnostic Results Transvaginal US 11/05: RT ovary measuring 5.4x4.8x4.8 LT ovary measuring 3.6x1.6x2.0 Size discrepancy likely result of avascular hypoechoic lesion on RT ovary measuring 3.5x2.5x3.8 Assessment and Plan Patient is a 32yo female with no pertinent PMH presenting with severe pelvic pain for past several days with an US reading of RT ovarian cyst 11/05. RT ovarian cyst Admit patient with plans for laparoscopic surgery with possible RT ovarian cystectomy or RT oophorectomy. Last meal 5 with 1-3 vincentian fries around 11am today Prophylax with ABX Hydrate with lactated ringers CBC to rule out contraindications for surgery Pain currently 05/13: Blood in peritoneum likely cause of percussion tenderness, cannot r/o possible ovarian torsion Control with IV pain medications morphine DVT prevention SCDs application
[2017-11-09] MEDS ORDERED: CEFAZOLIN SOD 1000MG/7.5 ML IV PUSH IV ONE (15:20)
[2017-11-09] MEDS ORDERED: LIDOCAINE HCL 2% 2 ML VIAL (20MG/ML) ONE (15:21)
[2017-11-09] MEDS ORDERED: GLYCOPYRROLATE INJ 0.2 MG/ML VIAL ONE (15:21)
[2017-11-09] MEDS ORDERED: PROPOFOL IV EMULSION 10 MG/ML 20 ML VIAL IV ONE (15:21)
[2017-11-09] MEDS ORDERED: MIDAZOLAM HCL 1 MG/ML 2ML VIAL ONE (15:21)
[2017-11-09] MEDS ORDERED: NEOSTIGMINE METHYLSULFATE 5 MG/5 ML SYR ONE (15:21)
[2017-11-09] MEDS ORDERED: DEXAMETHASONE SOD INJ 4 MG/ML VIAL ONE (15:21)
[2017-11-09] MEDS ORDERED: ONDANSETRON INJ 2 MG/ML 2 ML VIAL ONE (15:21)
[2017-11-09] MEDS ORDERED: FENTANYL CITRATE INJ 50 MCG/1 ML 2 ML VIAL ONE (15:21)
[2017-11-09] MEDS ORDERED: EpHEDrine SULFATE INJ 50 MG/ML AMP IV PRN (15:30)
[2017-11-09] MEDS ORDERED: ONDANSETRON INJ 2 MG/ML 2 ML VIAL IV PRN ×2 (15:30→17:15)
[2017-11-09] MEDS ORDERED: ATROPINE SULFATE 0.1 MG/ML 5ML SYR IV PRN (15:30)
--- NOTE | 2017-11-09 15:36 | HISTORY & PHYSICAL EXAMINATION ---
DATE OF ADMISSION: 11/09/2017 HISTORY OF PRESENT ILLNESS: Aleta is a 32-year-old woman who had presented initially to the Emergency Room on November 05 with right lower quadrant and back pain and ovarian cyst. She was assessed at that time and treated as an outpatient. She followed up in the office today and saw my partner Dr. Josue in the office. At that time, she was assessed by history and physical and found to have significant pain, which had worsened, especially in the right lower quadrant. The mass is palpated there as well. The cyst was initially found on CT scan in the ER and also had an ultrasound. Her pain she says is 8-9/10 and sharp. The exam in the office with Dr. Josue revealed that the patient is in some distress. Her right lower quadrant is palpated to be extremely tender and there was a mass effect of approximately 5 cm. The belly also showed peritoneal irritation signs as well. PAST GYNECOLOGIC HISTORY: She has had a prior tubal ligation. She has 2 prior children with us and no other major problems. PAST SURGICAL HISTORY: Tubal ligation and laparoscopic cholecystectomy. PAST MEDICAL HISTORY: Healthy. MEDICATIONS: None. DRUG ALLERGIES: None. On her November 05 visit, her ultrasound did reveal the size of the right ovary to be 5.4 cm with the actual cyst 3.5 x 2.5 x 3.8 cm. SOCIAL HISTORY: Nonsmoker and nondrinker. FAMILY HISTORY: Noncontributory. REVIEW OF SYSTEMS: The patient has not had a bowel movement recently. PHYSICAL EXAMINATION: VITAL SIGNS: Stable. She is afebrile. CHEST: Clear. CARDIOVASCULAR: Normal rate and rhythm. No audible murmur. ABDOMEN: Bowel sounds are minimal. Abdomen is soft, but is extremely tender. She is not distended. She has significant irritation on percussion. No hernias palpated. PELVIC: Deferred as the recent exam was done by my partner and I discussed the case as she was seen in the in the office as I aware that this will inflict more discomfort in the patient and is unnecessary. IMPRESSION AND PLAN: I reviewed this case with Dr. Josue already and both of us feel that the patient likely needs operation specifically laparoscopy, possible right or left ovarian cystectomy, and possible right or left ovarian oophorectomy. The lesion is likely on the right; however, because of the ultrasound sometimes identifying mass effects that crossed the midline, I will consent her for both potential sides. Clearly, we will not remove both ovaries or remove both cysts. We will only address the pathological ovary and the patient understands this. The patient understands that there is a significant chance of losing the ovary as well. Clearly, we will make efforts to safe it if we can. We discussed risks including, but not limited to risk of bleeding, infection, injury to bowel, bladder, ureter, vessels, deep vein thrombosis, pulmonary embolus and hernia. We discussed the option of not having surgery; however, her pain continues to get worse and I feel at this stage, the right answer is to proceed with surgical assessment and she agrees. DANNI
[2017-11-09] MEDS ORDERED: LARYING-O-JET KIT (LTA) ONE (15:40)
[2017-11-09] MEDS ORDERED: SUCCINYLCHOLINE CHLORIDE 20 MG/ML 10 ML VIAL IV ONE (15:40)
[2017-11-09] MEDS ORDERED: HYDROmorphone INJ 2 MG/ML SYR/VIAL ONE (16:08)
[2017-11-09] MEDS ORDERED: SODIUM CHLORIDE 0.9% INJ 10 ML VIAL ONE (16:08)
[2017-11-09] MEDS ORDERED: ROCURONIUM BROMIDE 10 MG/ML 5 ML VIAL IV ONE (16:40)
[2017-11-09] MEDS ORDERED: KETOROLAC TROMETHAMINE 30 MG/ML VIAL ONE (17:01)
--- NOTE | 2017-11-09 17:06 | [facility] Post Operative Brief Note ---
Immediate Operative Summary Operative Date Nov 09, 2017. Pre-Operative Diagnosis Ovarian cyst Post-Operative Diagnosis Right ovarian cyst Procedure(s) Performed Laparoscopy, Right ovarian Cystectomy Surgeon Dr Benoit Rail Car Repairman Surgeon(s) Bell Estimated Blood Loss 10ml Findings Consistent with Post-Op Diagnosis Specimens none per surgeon Drains None Anesthesia Type General Complication(s) none Disposition Accompanied Pt To Recover: no Disposition: Recovery Room / PACU
[2017-11-09] MEDS ORDERED: SODIUM CHLORIDE 0.9% 1000ML 1,000 ML IV SCH (17:08)
--- NOTE | 2017-11-09 17:09 | Discharge Instructions ---
Discharge Instructions Date of Service Nov 09, 2017. Admission Reason for Admission: Cyst On Ovary Discharge Discharge Diagnosis / Problem: ovarian cyst Discharge Goals Goal(s): Routine recovery after surgery Activity Recommendations Activity Limitations: per Instructions/Follow-up section . Instructions / Follow-Up Instructions / Follow-Up ACTIVITY RECOMMENDATIONS: * Rest the first 2-3 days. You should be back to your normal activity levels by day 3. * No heavy lifting for 2 weeks. * No intercourse, tampons or douching for 1-2 weeks. * You may shower the next day. * Do not drive anytime that you are taking narcotic pain medicines. RETURN TO SCHOOL/WORK: * May return to school or work after 2-3 days. DIET: Nausea may occur in the immediate post-operative period. If so, take clear liquids such as tea, bouillon, apple juice until all nausea has subsided, then resume usual diet. MEDICATIONS: Resume previous medications unless instructed otherwise by your surgeon. Ibuprofen 200mg 2-3 tablets every 4-6 hours as needed -- OR -- Aleve 2 tablets every 8-12 hours as needed for post-operative discomfort Medications are over the counter. Tylenol may be used if above medications are contraindicated or not preferred. Medication should be taken with food or milk. Do not take on an empty stomach. SPECIAL CARE INSTRUCTIONS: * Check temperature twice daily for one week. report any elevation over 101 degrees. * You may experience some vagina spotting and/or bleeding. This is normal for 1 -2 weeks and should not be heavier than a normal period. If it is unusual in amount, call your physician. * Post-operative discomfort may consist of a sore throat, a "bloated" feeling and pain in the shoulders. these are normal symptoms, which usually only last for 2-3 days. * Remove band-aids tomorrow and shower. There is no need to replace band-aids unless there is drainage or discomfort. FOLLOW UP VISIT: Call your doctor's office for a post-operative 2 week visit if not already scheduled. Current Hospital Diet Patient's current hospital diet: Discharge Diet Recommended Diet: Regular Diet Procedures Procedures Performed: Laparoscopy, Right ovarian Cystectomy Pending Studies Studies pending at discharge: no Medical Emergencies . Who to Call and When: Medical Emergencies: If at any time you feel your situation is an emergency, please call 911 immediately. . Non-Emergent Contact Non-Emergency issues call your: Upholsterer Helper . . "Provider Documentation" section prepared by Branden Benoit. . VTE Core Measure Inpt VTE Proph given/why not?: Laurita Irene, SCD's
[2017-11-09] MEDS ORDERED: OXYC1TAB3 PO (17:10)
[2017-11-09] MEDS ORDERED: PROMETHAZINE HCL INJ 25 MG in SODIUM CHLORIDE 0.9% 50ML 50 ML IV PRN (17:15)
[2017-11-09] MEDS ORDERED: KETOROLAC TROMETHAMINE 30 MG/ML VIAL IV. PRN (17:15)
[2017-11-09] MEDS ORDERED: OXYCODONE/ACETAMINOPHEN 5-325 TAB PO PRN ×2 (17:15)
[2017-11-09] MEDS ORDERED: IBUPROFEN 600 MG TAB PO PRN (17:15)
[2017-11-09] MEDS: FENTANYL CITRATE INJ 50 MCG/1 ML 2 ML VIAL IV PRN ×4 (17:32→17:47)
--- NOTE | 2017-11-09 17:43 | Medical Student: [facility] ---
Operative Report Operative Date Nov 09, 2017. Pre-Operative Diagnosis RT ovarian cyst Post-Operative Diagnosis RT ovarian hemorrhagic cyst Procedure(s) Performed Laproscopic RT ovarian cysectomy Surgeon Dr. Benoit Stick Roller Surgeon(s) Lis Luu Estimated Blood Loss 20cc Findings Patient had an enlarged functional cyst on RT ovary, resulting in size distortion. Cyst structure was smooth in nature making pathologic source less likely Specimens None Drains None Anesthesia General Complication(s) None Disposition Recovery Room / PACU Implants None Indications Severe RT abdominal pain for several days. HX of transvaginal US showing 3.5x2.5x3.8 avascular hypoechoic lesion on 11/05. Assessment in office by Dr. Josue. Emergency room evaluation by Dr. Benoit Description of Procedure Patient put under general anesthesia and given prophylactic ABX. Abdomen and groin prepped and draped. Ahuja catheter inserted. Uterine manipulation tool inserted for improved visibility. 10in port placed inferior to umbilicus. Abdominal cavity inflated with high flow CO2. Two 5in lateral ports placed on LT side at 8in and 5in from the midline with insertion visualized by laparoscope. RT and LT ovaries visualized with obvious distortion of RT noted. RT ureter identified. Perforation of cyst resulted in release of blood contents. Suction was applied to the cyst with repeated irrigation used. No further actions required at this time. Several images taken Lidocaine inserted into fascial plan and adipose of umbilical incision site. Primary closure of umbilical site with vacryl. Microfilament sutures closed three incision sites, dermabond used on each Ahuja removed Uterine manipulator removed [facility] - taken to [facility]
[2017-11-09] MEDS: HYDROmorphone INJ 1 MG/ML SYR IV PRN ×2 (17:52→17:59)
--- NOTE | 2017-11-09 18:10 | Anesthesiology Progress Note ---
Anesthesia Post Op Note Date & Time Nov 09, 2017 at 18:09 Vital Signs Pain Intensity: 5 Vital Signs Past 12 Hours Date Time Temp Pulse Resp B/P (MAP) Pulse Ox O2 Delivery O2 Flow Rate FiO2 11/09/17 18:05 64 18 118/72 99 Room Air 11/09/17 17:55 68 17 117/66 98 Room Air 11/09/17 17:45 72 13 124/71 100 Oxymask 2 11/09/17 17:35 74 18 122/76 100 Oxymask 10 11/09/17 17:25 80 13 117/71 100 Oxymask 10 11/09/17 17:18 36.6 94 14 126/69 100 Oxymask 10 11/09/17 13:38 36.8 96 18 141/93 100 Room Air Notes Mental Status: alert / awake / arousable, participated in evaluation Pt Amnestic to Procedure: Yes Nausea / Vomiting: adequately controlled Pain: adequately controlled Airway Patency, RR, SpO2: stable & adequate BP & HR: stable & adequate Hydration State: stable & adequate Anesthetic Complications: no major complications apparent
--- NOTE | 2017-11-09 18:17 | Medical Student: [facility] ---
Immediate Operative Summary Operative Date Nov 09, 2017. Pre-Operative Diagnosis RT ovarian cyst Post-Operative Diagnosis RT ovarian hemorrhagic cyst Procedure(s) Performed Laproscopic RT ovarian cysectomy Surgeon Dr. Benoit Horse Racing Analyst Surgeon(s) Lis Luu Estimated Blood Loss 20cc Findings Functional RT ovarian cyst Specimens None Drains None Anesthesia General Complication(s) None Disposition Recovery Room / PACU
[2017-11-09 18:19] VITALS: BP 113/66; PULSE 64; TEMP 36.3; O2SAT 99
[2017-11-09] MEDS ORDERED: OXYCODONE/ACETAMINOPHEN 5-325 TAB ONE (18:30)
[2017-11-09 18:49] VITALS: BP 122/74; PULSE 85; O2SAT 99
[2017-11-09 19:19] VITALS: BP 119/72; PULSE 80; TEMP 36.5; O2SAT 99
--- NOTE | 2017-11-09 21:25 | OPERATIVE REPORT ---
DATE OF OPERATION: 11/09/2017 PREOPERATIVE DIAGNOSIS: Right ovarian cyst, pelvic pain. POSTOPERATIVE DIAGNOSIS: Same. PROCEDURE: Laparoscopy, right ovarian cystectomy. SURGEON: Branden Benoit MD. AMERICAN HISTORY TEACHER: None. ESTIMATED BLOOD LOSS: 20 mL. FINDINGS: Right ovarian hemorrhagic cyst. DRAINS: None. ANESTHETIC: General. COMPLICATIONS: None. DISPOSITION: Recovery room. DESCRIPTION OF PROCEDURE: The patient given a general anesthetic, prepped and draped in dorsal lithotomy position in [facility]. Bladder drained with a Ahuja catheter and cervix grasped with an Allis clamp and a cervical acorn manipulator attached. Gloves changed and a subumbilical incision made with scalpel. Using open Shagufta technique, we did a direct cutdown through subcutaneous fat to the fascia, splitting the rectus muscles and entering the peritoneal cavity. Blunt-tipped Shagufta trocar placed, balloon inflated to stabilize the port. CO2 gas used to insufflate the abdomen. Findings of upper abdomen normal, no sign of visceral organ injury. Deep Trendelenburg position obtained. There was a right ovarian cyst, it was enlarged appeared hemorrhage. There was no evidence of torsion. The ovary certainly seemed viable. The left ovary appeared normal as did the uterus. The appendix also appeared normal. With this, we then made two 5 mm ports on the left upper quadrant area and placed ports under direct visualization. Using a nontraumatic grasper and the Harmonic scalpel, I was able to incise the ovarian cyst and blood then drained from this. It did not seem to be a pathological cyst as there was no cyst cavity. We improved hemostasis with the harmonic on a low setting and once hemostasis was excellent, we generously irrigated and suctioned and performed a low carbon dioxide cavity test which it passed. At this stage, cyst was removed. Both ovaries now appeared normal. There was evidence of prior tubal ligation in the past and she has had this procedure before. Instruments were removed under direct visualization. The port removed, gas allowed to escape. Incisions injected with 0.5% Marcaine. Fascia closed with 0 Vicryl in the umbilical incision and then 4-0 subcuticular Monocryl and Dermabond applied. Catheter removed from the bladder and the instruments removed from the cervix and vagina. Sponge and instrument counts correct. I attest to the content of the Intraoperative Record and any orders documented therein. Any exception s are noted below.
[2017-11-10] MEDS ORDERED: CEFAZOLIN IV 2,000 MG in DEXTROSE 5% 50ML 50 ML IV SCH (06:00)
== END 2017-11-09 15:20 | disposition home or self-care (01) ==
LOC: C.EDB 13:29 → C.EDD 15:20
DX: N83.201 Unspecified ovarian cyst, right side (principal); R10.2 Pelvic and perineal pain

== ENCOUNTER → 2017-12-16 | Outpatient (CLI) | payer OTHER | END | disposition home or self-care (01) | LOC: C.LAB1850 12:34 | PROVIDERS: ATTEND Internal Medicine Endocrinology, Diabetes & Metabolism | DX: R94.6 Abnormal results of thyroid function studies (principal) ==

== ENCOUNTER 2023-12-17 05:44 | Observation (INO) ==
--- NOTE | 2023-11-25 09:44 | PAT Medication Instructions ---
Medication Instructions Date of Service November 25, 2023 Home Medications Medication Instructions Recorded metformin 500 mg tablet,extended 500 mg PO BID #60 tabs 04/22/23 release 24hr (osmotic) bupropion HCl 300 mg 24 hr tablet, 300 mg PO QAM #30 tabs 09/10/23 extended release lorazepam 1 mg tablet 1 mg PO TID PRN Anxiety #60 tabs 09/10/23 sumatriptan succinate 50 mg tablet 50 mg PO DIRECTED PRN Migraine 09/10/23 (Imitrex) Headache #6 tabs trazodone 100 mg tablet 150 mg (1.5 x 100 mg) PO HS #45 09/10/23 tabs oxycodone 5 mg tablet 5 mg PO Q6H PRN pain #10 tabs 11/16/23 prednisone 10 mg tablet See Rx Instructions .Route 11/16/23 .COMPLEX #39 tabs gabapentin 300 mg capsule 300 mg PO .COMPLEX #30 caps 11/24/23 meloxicam 15 mg tablet 15 mg PO DAILY #30 tabs 11/24/23 oxycodone-acetaminophen 5 mg-325 1 tab PO DAILY #30 tabs 11/24/23 mg tablet tizanidine 4 mg tablet 4 mg PO BID PRN muscle spasticity 11/24/23 #30 tabs albuterol sulfate 90 mcg/actuation aerosol inhaler 2 inh inhalation QID PRN omeprazole 20 mg capsule,delayed release 20 mg PO DAILY PRN metformin 500 mg tablet,extended release 24hr (osmotic) 500 mg PO BID bupropion HCl 300 mg 24 hr tablet, extended release 300 mg PO QAM lorazepam 1 mg tablet 1 mg PO TID PRN sumatriptan succinate 50 mg tablet (Imitrex) 50 mg PO DIRECTED PRN trazodone 100 mg tablet 150 mg (1.5 x 100 mg) PO HS multivitamin 1 tab PO QAM oxycodone 5 mg tablet 5 mg PO Q6H PRN prednisone 10 mg tablet See Rx Instructions .Route .COMPLEX gabapentin 300 mg capsule 300 mg PO .COMPLEX meloxicam 15 mg tablet 15 mg PO DAILY oxycodone-acetaminophen 5 mg-325 mg tablet 1 tab PO DAILY tizanidine 4 mg tablet 4 mg PO BID PRN Continue as directed oxycodone-acetaminophen 5 mg-325 mg tablet 1 tab PO DAILY prednisone 10 mg tablet See Rx Instructions .Route .COMPLEX gabapentin 300 mg capsule 300 mg PO .COMPLEX omeprazole 20 mg capsule,delayed release 20 mg PO DAILY PRN(if needed) sumatriptan succinate 50 mg tablet (Imitrex) 50 mg PO DIRECTED PRN(if needed) oxycodone 5 mg tablet 5 mg PO Q6H PRN(if needed) ASK your surgeon for instructions meloxicam 15 mg tablet 15 mg PO DAILY DO NOT take the morning of surgery metformin 500 mg tablet,extended release 24hr (osmotic) 500 mg PO BID multivitamin 1 tab PO QAM Take morning of surgery With a small sip of water, OTHERWISE NOTHING TO EAT OR DRINK AFTER MIDNIGHT: albuterol sulfate 90 mcg/actuation aerosol inhaler 2 inh inhalation QID PRN(use if needed; please bring with you to hospital day of surgery if possible) bupropion HCl 300 mg 24 hr tablet, extended release 300 mg PO QAM lorazepam 1 mg tablet 1 mg PO TID PRN(if needed) tizanidine 4 mg tablet 4 mg PO BID PRN(if needed) Take evening before surgery albuterol sulfate 90 mcg/actuation aerosol inhaler 2 inh inhalation QID PRN(if needed) metformin 500 mg tablet,extended release 24hr (osmotic) 500 mg PO BID lorazepam 1 mg tablet 1 mg PO TID PRN(if needed) trazodone 100 mg tablet 150 mg (1.5 x 100 mg) PO HS tizanidine 4 mg tablet 4 mg PO BID PRN(if needed) Other Notes If you have any questions please call us at [phone] or [phone] or [phone] or [phone]
--- NOTE | 2023-11-29 14:21 | Anesthesiology Consultation ---
Date of Service November 29, 2023 Assessment & Plan (1) Encounter for pre-operative examination: Chart Review Chart Review: Acceptable Risk for Surgery (surgeon ordered labs ) and Patient seen in Pre Admission Testing - Awaiting labs (CBC with diff, PRP, coags and T&S) (patient getting done through outpatient lab (did not do at [facility] due to patient usually getting dizzy with blood draws and needing a over the road driver)- patient will get labs 11/30/23 or 12/01/23 at [facility])- surgeon's office informed Per [facility] appt on 11/29/23, no recent illness/disease exposures, illness related symptoms, or recent illness/disease positive tests. Will leave to surgeon's discretion if preop Covid testing needed Left cubital tunnel release 07/08/23= Done under [place] with LMA #4. Good seal x 1 attempt Teaching & Discussion Pre-Anesthesia Teaching/Discussion Notes: Instructed NPO after midnight before surgery,except medications with 15 cc of water. Medication instructions provided according to the [facility] guidelines. History Surgery Operation Date: 12/17/23 07:15 Proposed Procedures p C5-C6, C6-C7 Anterior Decompression and Artifical Disc Replacement - Issa Zepeda MD Height/Weight Height: 5 ft 7 in Weight: 94.8 kg Allergies Allergy/AdvReac Type Severity Reaction Status Date / Time nickel Allergy Mild Rash (with Verified 11/16/23 15:07 earring/jeans snaps) No Known Drug Allergies Allergy Verified 11/24/23 15:41 Medications Home Medications Medication Instructions Recorded Confirmed Last Taken albuterol sulfate 90 mcg/actuation 2 inh inhalation QID PRN shortness 08/14/20 11/24/23 Unknown aerosol inhaler of breath or wheezing omeprazole 20 mg capsule,delayed 20 mg PO DAILY PRN gerd 09/11/22 11/24/23 09/16/22 release metformin 500 mg tablet,extended 500 mg PO BID #60 tabs 04/22/23 11/24/23 11/16/23 release 24hr (osmotic) bupropion HCl 300 mg 24 hr tablet, 300 mg PO QAM #30 tabs 09/10/23 11/24/23 11/16/23 extended release lorazepam 1 mg tablet 1 mg PO TID PRN Anxiety #60 tabs 09/10/23 11/24/23 Unknown sumatriptan succinate 50 mg tablet 50 mg PO DIRECTED PRN Migraine 09/10/23 11/24/23 Unknown (Imitrex) Headache #6 tabs trazodone 100 mg tablet 150 mg (1.5 x 100 mg) PO HS #45 09/10/23 11/24/23 11/15/23 tabs multivitamin 1 tab PO QAM 11/16/23 11/24/23 11/16/23 oxycodone 5 mg tablet 5 mg PO Q6H PRN pain #10 tabs 11/16/23 11/24/23 Unknown prednisone 10 mg tablet See Rx Instructions .Route 11/16/23 11/24/23 Unknown .COMPLEX #39 tabs gabapentin 300 mg capsule 300 mg PO .COMPLEX #30 caps 11/24/23 11/24/23 Unknown meloxicam 15 mg tablet 15 mg PO DAILY #30 tabs 11/24/23 11/24/23 Unknown oxycodone-acetaminophen 5 mg-325 1 tab PO DAILY #30 tabs 11/24/23 11/24/23 Unknown mg tablet tizanidine 4 mg tablet 4 mg PO BID PRN muscle spasticity 11/24/23 11/24/23 Unknown #30 tabs Additional Notes: Takes Metformin for obesity per patient - no hx of DM/preDM Past Medical History Medical History Anxiety and depression GERD (gastroesophageal reflux disease) well controlled and stable History of high blood pressure No meds History of kidney stones no surgery required History of ovarian cyst Insomnia Migraine headache Scoliosis Thyroid nodule Under observation Exercise / Class Metabolic Activity II 4-5 Yardwork/Stairs/Walk up hill (one flight of stairs- no chest pain or SOB) Past Family History Family History Grandmother (Maternal) Family history of diabetes mellitus Diabetes Aunt Breast cancer maternal Other No family history of adverse response to anesthesia Denies family history of Ovarian cancer Prostate cancer Myocardial infarction Colorectal cancer Past Surgical History Surgical History Biceps tendon tear repaired left side H/O laparoscopy OVARIAN CYSTECTOMY H/O LEEP For ASHLEY 3 H/O tubal ligation 2014 History of anesthesia reaction slow to wake up History of cholecystectomy DURING PROCEDURE-KNICKED LIVER (HEALED) History of colonoscopy Hx of shoulder surgery LEFTx 3 [place] teeth removed Past Anesthesia History No Hx of Anesthesia Complications (with exception to slow to wake- groggy - no reintubation or ICU stay ) and No Family Hx of Anesthesia Complications History of PONV No Hx of PONV and Hx of Motion Sickness STOP BANG Total 0 Social History Smoking Status: Current every day smoker tobacco type: cigarettes Smoking cigarettes per day: 2-3 CIGS A DAY>advised Do You Dip or Chew Tobacco: No Hx Alcohol Use: Yes Alcohol type: hard liquor alcohol intake frequency: a few times a month Hx Substance Use: No substance use type: does not use Review of Systems Patient denies chest pain, shortness of breath, dyspnea on exertion, reflux, cough, wheezing, palpitations. No hx of seizures, stroke, [place], apnea/snoring. No hx of blood clots or blood transfusions Physical Exam Vital Signs VITALS BP 118/79 P 97 SP02 97% RESP 16 Constitutional no acute distress ENMT Mouth: no TMJ clicking Thyromental Distance: > or= 3.5 Finger Breadths (3.5) Mallampati Class: I Missing molars Neck + limited neck extension Respiratory normal respiratory effort; no respiratory distress Auscultation: lungs clear to auscultation bilaterally; no wheezes Cardiovascular Rate/Rhythm: regular rate and regular rhythm Heart Sounds: no murmur Vessels: no carotid bruit Musculoskeletal Spine: + pain with cervical ROM Extremities: extremities normal to inspection Psychiatric Orientation: alert Testing Electrocardiogram Date: 11/29/23 Findings: + NSR @ (93bpm) Normal EKG per cardio
[2023-12-17] MEDS: LR 15ML/HR IV SCH (06:19)
[2023-12-17] MEDS: LR 60ML/HR IV SCH (06:20)
[2023-12-17] MEDS ORDERED: ATROPINE SULFATE 0.1 MG/ML 10ML SYR IV PRN (06:39)
[2023-12-17] MEDS ORDERED: HYDROmorphone INJ 2 MG/ML SYR/VIAL IV PRN (06:39)
[2023-12-17] MEDS ORDERED: PROMETHAZINE HCL 6.25 MG in SODIUM CHLORIDE 0.9% 50 ML IV PRN (06:39)
[2023-12-17] MEDS ORDERED: ePHEDrine sulfate 50 MG/ML AMP IV PRN (06:39)
[2023-12-17] MEDS ORDERED: fentaNYL citrate PF 100 MCG/2 ML VIAL ONE ×2 (06:54→08:22)
[2023-12-17] MEDS ORDERED: MIDAZOLAM HCL 1 MG/ML 2ML VIAL ONE (06:54)
[2023-12-17] MEDS ORDERED: SCOPOLAMINE 1 MG TDSY TD ONE (07:09)
--- NOTE | 2023-12-17 07:13 | History & Physical Bridge Note ---
Date of Service December 17, 2023 History & Physical Bridge Note I have examined the patient, reviewed the History & Physical and in the interval since the performance of the History & Physical I have noted the following changes of clinical significance: no changes noted
[2023-12-17] MEDS: SCOPOLAMINE 1 MG TDSY TD ONE (07:16)
[2023-12-17] MEDS ORDERED: ROCURONIUM BROMIDE 10 MG/ML 5 ML VIAL IV ONE ×3 (07:28→08:24)
[2023-12-17] MEDS: ceFAZolin 2000MG 2,000 MG/15 ML SYR IV SCH (07:40)
[2023-12-17] MEDS ORDERED: ONDANSETRON INJ 2 MG/ML 2 ML VIAL ONE (08:04)
[2023-12-17] MEDS ORDERED: PROPOFOL IV EMULSION 10 MG/ML 20 ML VIAL IV ONE ×3 (08:04→10:25)
[2023-12-17] MEDS ORDERED: diphenhydrAMINE 50 MG/ML VIAL ONE (08:04)
[2023-12-17] MEDS ORDERED: LIDOCAINE 2% 2 ML VIAL/AMP(20MG/ML) INFIL ONE (08:04)
[2023-12-17] MEDS ORDERED: DEXAMETHASONE SOD INJ 4 MG/ML VIAL ONE (08:04)
[2023-12-17] MEDS ORDERED: HYDROmorphone INJ 2 MG/ML SYR/VIAL ONE (08:31)
[2023-12-17] MEDS ORDERED: PHENYLEPHRINE HCL 10 MG/ML VIAL ONE (10:00)
[2023-12-17] MEDS ORDERED: ceFAZolin 330 MG/ML 1 GM VIAL ONE (10:29)
[2023-12-17] MEDS: VANCOMYCIN HCL 1000MG/20ML VIAL ONE (11:20)
[2023-12-17] MEDS: THROMBIN 5000 UNITS KIT ONE ×2 (11:20→11:41)
[2023-12-17] MEDS: GELATIN SPONGE 12-7MM ONE (11:20)
[2023-12-17] MEDS: FLOSEAL HEMOSTATIC MATRIX 10ML TOP ONE (11:21)
[2023-12-17] MEDS ORDERED: SUGAMMADEX SODIUM 200 MG/2 ML VIAL IV ONE (11:25)
--- NOTE | 2023-12-17 11:46 | Post Operative Brief Note ---
PG Immediate Post Op with CF Date of Surgery December 17, 2023 Pre & Post Diagnosis Operation Date: 12/17/23 07:15 Pre-Op Diagnosis: Cervicalgia, Radicular Pain in Right Arm, Herniated nucleus pulposis C6-C7 right, neuroforaminal stenosis of cervical spine, right cervical radiculopathy Post-Op Diagnosis: Cervicalgia, Radicular Pain in Right Arm, Herniated nucleus pulposis C6-C7 right, neuroforaminal stenosis of cervical spine, right cervical radiculopathy I identified the patient and participated in the time-out.: Yes Procedure Operation Date: 12/17/23 07:15 Actual Procedures p C5-C6, C6-C7 Anterior Decompression and Artifical Disc Replacement(Not Applicable) - Issa Zepeda MD Surgeon Issa Zepeda MD Quality Control Manager none Estimated Blood Loss 20 Findings Consistent with Post-Op Diagnosis Specimens Specimen Description: none per surgeon Drains Ahuja Catheter
[2023-12-17] MEDS ORDERED: hydrOXYzine HCl 25 MG TAB PO PRN (11:47)
[2023-12-17] MEDS ORDERED: PROMETHAZINE HCL 12.5 MG in SODIUM CHLORIDE 0.9% 50 ML IV PRN (11:47)
[2023-12-17] MEDS ORDERED: SOD PHOSPHATE/SOD BIPHOSPHATE ENEMA 132 ML BTL PR PRN (11:47)
[2023-12-17] MEDS ORDERED: ONDANSETRON 4 MG OD TAB PO PRN (11:47)
[2023-12-17] MEDS ORDERED: LORazepam 0.5 MG in SYRINGE 0.25 ML IV PRN (11:47)
[2023-12-17] MEDS ORDERED: LORazepam 0.5 MG TAB PO PRN (11:47)
[2023-12-17] MEDS ORDERED: dexAMETHasone 8 MG in SYRINGE 0 ML IV PRN (11:47)
[2023-12-17] MEDS ORDERED: diphenhydrAMINE Capsule 25 MG CAP PO PRN (11:47)
[2023-12-17] MEDS ORDERED: METOCLOPRAMIDE HCL INJ 5 MG/ML 2 ML VIAL IV PRN (11:47)
[2023-12-17] MEDS ORDERED: ACETAMINOPHEN 500 MG TAB PO PRN (11:47)
[2023-12-17] MEDS ORDERED: DO NOT ADMINISTER PNEUMOCOCCAL VACCINE PRN (11:47)
[2023-12-17] MEDS ORDERED: DO NOT ADMINISTER FLU VACCINE PRN (11:47)
[2023-12-17] MEDS ORDERED: bisacodyL 10 MG SUPP PR PRN (11:47)
[2023-12-17] MEDS ORDERED: ONDANSETRON INJ 2 MG/ML 2 ML VIAL IV PRN (11:47)
[2023-12-17] MEDS ORDERED: RACEPINEPHRINE 2.25% NEBU SOLN 0.5 ML VIAL INH PRN (11:47)
[2023-12-17] MEDS ORDERED: NALOXONE HCL 0.4 MG/1 ML VIAL/CARP IV PRN (11:47)
[2023-12-17] MEDS ORDERED: FAMOTIDINE 20 MG TAB PO PRN (11:47)
[2023-12-17] MEDS ORDERED: ALUMINUM/MAGNESIUM SUSP 30 ML UDC PO PRN (11:47)
[2023-12-17] MEDS ORDERED: MAGNESIUM HYDROXIDE SUSP 30 ML UDC PO PRN (11:47)
--- NOTE | 2023-12-17 12:47 | Anesthesiology Progress Note ---
Date of Service December 17, 2023 Anesthesia Post Procedure Vital Signs Vital Signs: Temp Pulse Pulse Resp BP Pulse Ox O2 Del Method 12/17/23 12:45 75 20 105/79 95 Room Air 12/17/23 12:35 76 18 117/78 95 Room Air 12/17/23 12:25 77 22 111/78 96 Room Air 12/17/23 12:15 91 H 16 123/84 97 Room Air 12/17/23 12:05 82 14 116/77 98 Room Air 12/17/23 11:55 82 22 122/79 100 Room Air 12/17/23 11:45 94 H 20 111/75 100 Room Air 12/17/23 11:36 36.1 C L 88 13 116/36 L 100 Room Air 12/17/23 06:11 36.7 C 95 H 20 134/91 98 Room Air Pain Intensity Bilateral Neck: Pain Intensity: 5 Transfer of Care Handoff Completed per policy Notes Mental Status: alert / awake / arousable Patient Amnestic to Procedure: Yes Nausea / Vomiting: adequately controlled Pain: adequately controlled Airway Patency, RR, SpO2: stable & adequate BP & HR: stable & adequate Hydration State: stable & adequate Anesthetic Complications: no major complications apparent and Pt Satisfied with anesthetic care
--- NOTE | 2023-12-17 13:15 | Fluoroscopy Report ---
FL cervical 2-3V CLINICAL HISTORY: C5-C7 ACDFcervical spinal fusion COMPARISON STUDY: Radiographs 11/24/2019 FLUOROSCOPY TIME: 157.4 seconds FLUOROSCOPY IMAGES: 14 EXPOSURE DOSE: 50.87 mGy FINDINGS: Endotracheal tube is noted. Anterior approach discectomy changes are noted at what appears to be the C5-C6 and C6-C7 levels. Note that the images were submitted following completion of the irwin werner. No unexpected opaque foreign bodies identified. IMPRESSION: Fluoroscopic assistance as above. ACT 112: Negative or not required by law. Electronically signed by: Frank Husain M.D. 12/17/2023 1:14 PM
[2023-12-17] MEDS ORDERED: ALBUTEROL HFA 8 GM INHALER INH PRN (13:28)
[2023-12-17] MEDS ORDERED: LORazepam 1 MG TAB PO PRN (13:28)
[2023-12-17] MEDS ORDERED: SUMAtriptan succinate 50 MG TAB PO PRN (13:28)
[2023-12-17] MEDS: LACTATED RINGER'S 1,000 ML IV SCH (13:34)
[2023-12-17] MEDS: HYDROmorphone INJ 0.5 MG/0.5 ML SYR IV PRN (14:47)
[2023-12-17] MEDS ORDERED: CHECK SCOPOLAMINE PATCH PLACEMENT SCH (16:00)
--- NOTE | 2023-12-17 16:14 | Operative Report ---
PG Post Operative Report Pre & Post Diagnosis Operation Date: 12/17/23 07:15 Pre-Op Diagnosis: Cervicalgia, Radicular Pain in Right Arm, Herniated nucleus pulposis C6-C7 right, neuroforaminal stenosis of cervical spine, right cervical radiculopathy Post-Op Diagnosis: Cervicalgia, Radicular Pain in Right Arm, Herniated nucleus pulposis C6-C7 right, neuroforaminal stenosis of cervical spine, right cervical radiculopathy I identified the patient and participated in the time-out.: Yes Procedure Operation Date: 12/17/23 07:15 Actual Procedures p C5-C6, C6-C7 Anterior Decompression and Artifical Disc Replacement(Not Applicable) - Issa Zepeda MD Surgeon Issa Zepeda MD Gaming Cashier none Estimated Blood Loss 20 Findings Consistent with Post-Op Diagnosis Specimens none Description of Procedure 1. C5-6 anterior cervical decompression and artificial disc replacement, NuVasive simplify size 2, size 4 (28269) 2. C6-7 anterior cervical decompression and artificial disc replacement, NuVasive simplify size 2, size 4 (15012) Patient was taken the operating room after adequate anesthesia was she was caref ully positioned supine on the OSI flat top table. Preprepped was performed, I then did positioning and imaging for making the incision for the left-sided anterior approach to the cervical spine. Prep and drape was performed, transverse incision was performed and advanced down to the medial border the sternocleidomastoid. I then advanced down to the anterior aspect of the cervical spine without issue, once in this area, is able to mobilize the tissues and fluoroscopically confirm our location. Some bipolar cautery was then used in this region for placement of the distraction pins placed under fluoroscopic control. Retractors were then set, I brought in the operative microscope and began the procedure at the C6-7 level first. Anterior annulotomy was performed followed by a thorough removal of disc material at that level including cartilage from the endplates and out to the uncinates on both sides. I then used the high-speed bur to thin some remaining spondylosis posteriorly, followed by then curettes and Kerrison punches to remove the remaining portion of the annulus and posterior longitudinal ligament. The disc herniation was then identified on the right side and using a variety of instruments as able to carefully remove this without issue. Further explanation did not reveal any additional fragments outside of some very minimal pieces, I then began sizing using trials from the NuVasive simplify set. The size as stated was obtained, the keel cut was made using fluoroscopic control followed by the insertion of the device at the C6-[address], I then removed the distractor pin at C7, Floseal and bone wax was applied. The pin was then inserted at the C5 level in a similar fashion after mobilizing the tissues, the retractors were then reset. Operative microscope was brought in, I then performed the same procedure at the C5-6 level with removal of the disc material, removal of some of the spondylosis present over in the right side causing foraminal stenosis. With this completed, trial was obtained and inserted and the same size disc replacement was felt to be appropriate for this level, the keel cut was performed and then inserted the disc without issue. Final inspection revealed no issues, the distractor pins were removed with Floseal and bone wax applied, irrigation was performed, vancomycin powder was placed and the operative site was closed with 3-0 interrupted Vicryl sutures followed by benzoin and Steri-Strips, sterile dressing was applied. Patient tolerated procedure well and was taken recovery room satisfactory condition. I attest to the content of the Intraoperative Record and any orders documented therein. Any exceptions are noted below.
[2023-12-17] MEDS: metFORMIN HCL ER 500 MG TABCR PO SCH (16:33)
[2023-12-17] MEDS: oxyCODONE/ACETAMINOPHEN 5mg/325mg TAB PO PRN (16:36)
[2023-12-17] MEDS: ceFAZolin 1000MG 1,000 MG/7.5 ML SYR IV SCH (17:13)
[2023-12-17] MEDS: ACETAMINOPHEN 1,000 MG/100 ML VIAL IV PRN (21:29)
[2023-12-17] MEDS: DOCUSATE SODIUM/SENNA 50/8.6MG TAB PO SCH (21:37)
[2023-12-17] MEDS: traZODone HCL 50 MG TAB PO SCH (21:37)
[2023-12-17] MEDS: oxyCODONE HCL IR 5 MG TAB (IMMEDIATE RELEASE) PO PRN (23:32)
[2023-12-18] MEDS: HYDROmorphone INJ 1 MG/ML SYRINGE IV PRN (05:24)
[2023-12-18] MEDS ORDERED: POLYETHYLENE (MIRALAX) 17 GM PACK PO SCH (06:00)
[2023-12-18] MEDS: oxyCODONE/ACETAMINOPHEN 5mg/325mg TAB PO SCH (08:09)
[2023-12-18] MEDS: buPROPion XL 300 MG TABCR PO SCH (08:09)
--- NOTE | 2023-12-18 10:17 | Orthopedic Progress Note ---
Date of Service December 18, 2023 Subjective . Pt s/p day 1 from C5-6 and C6-7 artificial disc replacement, arm symptoms improved significantly, has right sided neck and shoulder pain. Incision with minimal drainage, neurointact. Swallowing without issue. Plan: Unsure if pain is controlled enough to DC home, will add Toradol and review later today or stay until tomorrow. Review of Systems All systems reviewed & are unremarkable except as noted in HPI & below. Physical Exam . Results & Data Results & Data Laboratory Results . Diagnostic Findings . PG Care Time/CCT Total # of Minutes Spent Total Time Spent with Patient: Total time spent is greater than 50% in coordination of care (as documented) at patient's floor/unit and/or counseling patient: Coding Level of Care Code 20537 Post Operative Follow-Up
[2023-12-18] MEDS: KETOROLAC 30 MG/ML VIAL IV PRN (10:22)
[2023-12-18] MEDS: tiZANidine HCL 4 MG TABLET PO PRN (10:28)
--- NOTE | 2023-12-19 10:54 | Orthopedic Progress Note ---
Date of Service December 19, 2023 Subjective Pt s/p surgery day 2, improved in neck pain, fingers right hand also improved. Incision dry, neuro intact Plan: DC home today, discussed medications and operative site care Review of Systems All systems reviewed & are unremarkable except as noted in HPI & below. Physical Exam . Results & Data Results & Data Laboratory Results . Diagnostic Findings . PG Care Time/CCT Total # of Minutes Spent Total Time Spent with Patient: Total time spent is greater than 50% in coordination of care (as documented) at patient's floor/unit and/or counseling patient: Coding Level of Care Code 34472 Post Operative Follow-Up
== END 2023-12-19 18:27 | disposition home or self-care (01) ==
LOC: 3E 05:44 → ASU 05:44